=== PATIENT | male | born 1955 | race Caucasian/White ===

== ENCOUNTER 2020-07-08 12:12 | Outpatient (RCR) | payer BC, SELFPAY | END 2020-08-05 23:59 | disposition home or self-care (01) | LOC: SOT 12:12 | PROVIDERS: PCP Electrodiagnostic Medicine; Referring Provider Orthopaedic Surgery; Visit Provider Orthopaedic Surgery | DX: Z47.89 Encounter for other orthopedic aftercare (principal); M79.645 Pain in left finger(s) | CPT/HCPCS: 97035; 97110 ==

== ENCOUNTER 2020-08-06 06:00 | Outpatient (RCR) | payer BC, SELFPAY | END 2020-09-02 23:00 | disposition home or self-care (01) | LOC: SOT 06:00 | PROVIDERS: PCP Electrodiagnostic Medicine; Referring Provider Orthopaedic Surgery; Visit Provider Orthopaedic Surgery | DX: M79.645 Pain in left finger(s) (principal) | CPT/HCPCS: 97110 ==

== ENCOUNTER 2021-09-01 11:28 | Outpatient (RCR) | payer MEDICARE, OTHER, SELFPAY | END 2021-09-05 23:59 | disposition home or self-care (01) | LOC: SOT 11:28 | PROVIDERS: PCP Electrodiagnostic Medicine; Referring Provider Orthopaedic Surgery; Visit Provider Orthopaedic Surgery | DX: Z47.89 Encounter for other orthopedic aftercare (principal) | CPT/HCPCS: 97165 ==

== ENCOUNTER 2021-09-06 06:00 | Outpatient (RCR) | payer MEDICARE, OTHER, SELFPAY | END 2021-10-03 23:59 | disposition home or self-care (01) | LOC: SOT 06:00 | PROVIDERS: PCP Electrodiagnostic Medicine; Referring Provider Orthopaedic Surgery; Visit Provider Orthopaedic Surgery | DX: Z47.89 Encounter for other orthopedic aftercare (principal) | CPT/HCPCS: 97022; 97032; 97035; 97110; 97140; 97168 ==

== ENCOUNTER 2021-10-04 06:00 | Outpatient (RCR) | payer MEDICARE, OTHER, SELFPAY | END 2021-11-03 23:59 | disposition home or self-care (01) | LOC: SOT 06:00 | PROVIDERS: PCP Electrodiagnostic Medicine; Referring Provider Orthopaedic Surgery; Visit Provider Orthopaedic Surgery | DX: Z47.89 Encounter for other orthopedic aftercare (principal) | CPT/HCPCS: 97022; 97032; 97110; 97140; 97165 ==

== ENCOUNTER 2024-03-27 11:39 | Outpatient (CLI) | payer MEDICARE, OTHER, SELFPAY ==
[2024-03-27 11:48] VITALS: BMI 29.9
--- NOTE | 2024-03-27 11:49 | ECG_ITS ---
[facility] Test Date: 2024-03-27 Pat Name: Pedro Costello Department: Room: Gender: Male Core Shaper: : 1955 Requested By: Abbe West Order Number: [id number] Charles MD: Jackson Samano M.D. Interpretive Statements NAME OF STUDY: TREADMILL STRESS TEST INDICATION: [Chest Pain, ] EXERCISE DATA: The patient was exercised by Adrian protocol. Baseline heart rate was 68 beats per minute. Baseline blood pressure was 111/69 millimeters of mercury. Maximal predicted heart rate was 151 beats per minute. Maximum heart rate achieved was 137 which was 90 % of the maximum predicted heart rate. Maximum blood pressure was 152/73 millimeters of mercury. Total exercise time was 7 minutes and 11 seconds. Maximum METs achieved was 10.2. The reason for ending the test was completion of protocol. The patient complained of shortness of breath during the stress test, which then resolved at the end of the test. ELECTROCARDIOGRAM: BASELINE: Showed sinus rhythm, normal axis, right bundle branch block, no significant ST-T changes at the baseline noted. [] EXERCISE: At the peak exercise level, [] No significant ST-T changes suggestive of ischemia noted. [] RECOVERY: During the recovery period, heart rate dropped appropriately. No significant ST-T changes in the recovery suggestive of ischemia noted. [] CONCLUSION: 1. Exercise capacity is good. 2. Heart rate response was appopriate 3. Blood pressure response was appropriate 4. Symptoms not suggestive of ischemia. 5. Stress test does not show evidence of ischemia. However underlying baseline right bundle branch block reduces sensitivity of the test. Clinical correlation is required. Electronically Signed On 03-29-2024 9:49:19 CDT by Jackson Samano M.D. [id number]
[2024-03-27 12:19] VITALS: BP 148/75; PULSE 78
== END 2024-03-27 11:40 | disposition home or self-care (01) ==
LOC: CDL 11:40
PROVIDERS: PCP Electrodiagnostic Medicine; Visit Provider Electrodiagnostic Medicine
DX: R07.9 Chest pain, unspecified (principal); R94.39 Abnormal result of other cardiovascular function study
CPT/HCPCS: 93017

== ENCOUNTER 2024-12-03 11:25 | Emergency (ER) | payer MEDICARE, OTHER, SELFPAY ==
[2024-12-03 11:26] VITALS: BP 164/118; PULSE 96; TEMP 36.4; O2SAT 98; BMI 28.7
--- NOTE | 2024-12-03 11:39 | CT_ITS ---
WS: [id number] CT ABDOMEN AND PELVIS NONCONTRAST HISTORY: flank pain/diff urinating TECHNIQUE: Imaging performed through the abdomen and pelvis. Coronal and sagittal reformats are submitted. All CT scans at [facility] use at least one of these dose optimization techniques: automated exposure control; mA and/or kV adjustment per patient size (includes targeted exams where dose is matched to clinical indication); or iterative reconstruction. DLP: 765.77 mGy.cm COMPARISON: 09/28/2018 Lower thorax: Lung bases are clear. Visualized heart is normal. No hiatal hernia. Liver: Normal size liver. No mass or bile duct dilatation. Gallbladder: Normal gallbladder. No pericholecystic fluid or cholelithiasis. No gallbladder wall thickening. Pancreas: Normal size and attenuation. Normal pancreatic duct. No pancreatitis or mass. Spleen: Normal. Adrenal glands: Normal. No mass. Right kidney: Normal size kidney. Nonobstructing calcification lower pole measures 6 mm. No ureteral calcification. Left kidney: Normal size kidney with no mass or hydronephrosis. Aorta: Minimal atherosclerosis aorta. No free fluid, intraperitoneal air or significant lymphadenopathy. GI tract: Normal noncontrast imaging of the stomach, small bowel and colon. No obstruction or wall thickening. Normal appendix. Abdominal wall: Negative. No hernia. Pelvis: Urinary bladder is well distended. There is a tiny nodule adjacent to the RIGHT lateral bladder if small diverticulum or lymph node. There is no free fluid in the pelvis. Prostate is enlarged. Fat-containing bilateral inguinal canals, greater on the RIGHT. There is new fat stranding and soft tissue along the RIGHT inguinal canal extending towards the scrotum. There is a mixed attenuation soft tissue mass along the inguinal canal measuring 4.6 x 4.4 cm. This needs to be evaluated by ultrasound. This may be an abnormal testicle with adjacent fluid or hematoma. There is fat stranding along the RIGHT inguinal canal which may represent a torsion of the spermatic cord. Osseous structures: Increase in the lumbar lordosis. CT/CT kidney stone [id number] IMPRESSION: 1. Abnormal RIGHT inguinal canal containing fat and fat stranding with a heter ogeneous mass towards the scrotal sac. Mass measures 4.6 x 4.4 cm. This may be an abnormal testicle with changes of acute torsion. Hematoma not excluded. Ladarius mmend testicular ultrasound to evaluate for torsion. 2. No renal obstruction or ureteral calcification. 3. No GI tract obstruction. Notified Ela Ulrich MD at 12/03/2024 12:06 PM.
--- NOTE | 2024-12-03 11:39 | W.ED.MALEGU ---
HPI - Male Genitourinary General: Chief complaint: Urogenital-Male Stated complaint: dr welch trouble urinating Time Seen by Provider: 12/03/24 11:36 Source: patient Mode of arrival: ambulatory Limitations: no limitations History of Present Illness: 69-year-old male states that over the last 2 hours he been having hard time urinating states been having some pain especially urinates into both flanks as well. He has had had history of kidney stones at least he may have history of prostate problems as he is to go to the bathroom frequently states he not been able to urinate at all over 2 hours denies any vomiting or diarrhea or fevers rates his pain a 4 out of 10 Associated symptoms: Reports dysuria; Deny nausea or vomiting Related Data Home Medications ?Medication ?Instructions ?Recorded ?Confirmed omeprazole 40 mg capsule,delayed 40 mg PO DAILY 12/03/24 12/03/24 release Previous Rx's ?Medication ?Instructions ?Recorded levofloxacin 500 mg tablet 500 mg PO DAILY 10 days #10 tabs 12/03/24 Allergies Allergy/AdvReac Type Severity Reaction Status Date / Time No Known Allergies Allergy Verified 12/03/24 11:34 Review of Systems Const: Denies: fever(s), chills, body aches or change in appetite ENMT: Denies: throat pain or dental pain Card: Denies: chest pain Resp: Denies: dyspnea GI: Denies: abdominal pain, nausea, vomiting or diarrhea : Reports: flank pain, difficulty urinating and dysuria Musc: Denies: neck pain or back pain Skin/Breast: Denies: rash Neuro: Denies: headache(s) Physical Exam Const: COMMON NORMALS: no acute distress, patient oriented x3 and healthy appearing HENMT: COMMON NORMALS: normocephalic and atraumatic HEAD & SCALP: normocephalic and atraumatic Eye: COMMON NORMALS: conjunctivae normal CONJUNCTIVA: Yes conjunctivae normal Neck/C-Spine: COMMON NORMALS: full ROM and supple Chest: COMMONS NORMALS: normal inspection of the chest Resp: COMMON NORMALS: normal respiratory effort Cardio: COMMON NORMALS: regular rate, regular rhythm and No murmurs present (Cardio) RATE: regular rate RHYTHM: regular rhythm GI: COMMON NORMALS: Normal to inspection, nondistended, normoactive bowel sounds present, Soft to palpation, non-tender and no masses PALPATION: Yes Soft to palpation Extremity: COMMON NORMALS: normal to inspection and full ROM Neuro: COMMON NORMALS: patient oriented x3, moves all extremities and no focal motor deficits Psych: COMMON NORMALS: mental status grossly normal, Normal thought process present and cooperative THOUGHT PROCESS: Normal thought process present Skin: COMMON NORMALS: no rashes or lesions noted and no wounds GENERAL SKIN EXAM: no rashes or lesions noted Course Vital Signs: Vital signs: Vital Signs Temperature 97.5 F L 12/03/24 11:26 Pulse Rate 85 12/03/24 12:55 Respiratory Rate 16 12/03/24 12:55 Blood Pressure 122/83 12/03/24 12:55 Pulse Oximetry 96 12/03/24 12:55 Oxygen Delivery Me thod Room Air 12/03/24 12:55 MDM - Male Medical Decision Making Patient presents with urinary retention feels much improved after Oglesby placed he is also has epididymitis on ultrasound no signs of torsion or mass will leave Oglesby in place will place him on Levaquin we will get him follow-up with urology he is return if worsening. Medical Records I reviewed the patient's medical records. Lab Data I reviewed the patient's lab results. 12/03/24 11:40 12/03/24 11:40 Radiology Impressions Abdomen/Pelvis CT 12/03/24 11:39 IMPRESSION: 1. Abnormal RIGHT inguinal canal containing fat and fat stranding with a heterogeneous mass towards the scrotal sac. Mass measures 4.6 x 4.4 cm. This may be an abnormal testicle with changes of acute torsion. Hematoma not excluded. Recommend testicular ultrasound to evaluate for torsion. 2. No renal obstruction or ureteral calcification. 3. No GI tract obstruction. Notified Ela Ulrich MD at 12/03/2024 12:06 PM. Scrotum Ultrasound 12/03/24 12:09 IMPRESSION: 1. No testicular mass or torsion. 2. Hydrocele surrounding the RIGHT testicle corresponds to the findings on the recent CT. 3. Acute RIGHT epididymitis. 4. Normal LEFT testicle. Laboratory Results WBC 6.87 10^3/uL (3.29-11.43) 12/03/24 11:40 RBC 5.65 10^6/uL (3.85-5.65) 12/03/24 11:40 Hgb 16.90 g/dL (11.27-16.99) 12/03/24 11:40 Hct 50.1 % (37-53) 12/03/24 11:40 MCV 88.7 fl (82-101) 12/03/24 11:40 MCH 29.9 pg (27-33) 12/03/24 11:40 MCHC 33.7 g/dL (30-55) 12/03/24 11:40 RDW 12.6 % (12.1-15.1) 12/03/24 11:40 Plt Count 200 10^3/cmm (157-399) 12/03/24 11:40 MPV 10.1 fL (7.4-10.4) 12/03/24 11:40 Neut % (Auto) 63.9 % 12/03/24 11:40 Lymph % (Auto) 26.1 % 12/03/24 11:40 [place] % (Auto) 6.0 % 12/03/24 11:40 Eos % (Auto) 3.2 % 12/03/24 11:40 Baso % (Auto) 0.7 % 12/03/24 11:40 Neut # (Auto) 4.39 10^3/uL (1.8-7.7) 12/03/24 11:40 Lymph # (Auto) 1.8 10^3/uL (0.8-4.8) 12/03/24 11:40 [place] # (Auto) 0.4 10^3/uL (0.2-0.9) 12/03/24 11:40 Eos # (Auto) 0.2 10^3/uL (0.0-0.8) 12/03/24 11:40 Baso # (Auto) 0.1 10^3/uL (0.0-0.1) 12/03/24 11:40 Nucleated RBC % (auto) 0 % 12/03/24 11:40 Nucleated RBCs # 0.0 /100WBC 12/03/24 11:40 Sodium 141 mmol/L (136-145) 12/03/24 11:40 Potassium 3.9 mmol/L (3.5-5.1) 12/03/24 11:40 Chloride 103 mmol/L (98-107) 12/03/24 11:40 Carbon Dioxide 26 mmol/L (22-29) 12/03/24 11:40 Anion Gap 15.9 (5-19) 12/03/24 11:40 BUN 13 mg/dL (8-23) 12/03/24 11:40 Creatinine 0.7 mg/dL (0.7-1.2) 12/03/24 11:40 GFR Calculation 111.5 mL/min (90-130) 12/03/24 11:40 Glucose 104 mg/dL (65-115) 12/03/24 11:40 Calculated Osmolality 292 mOsm/kg (285-295) 12/03/24 11:40 Calcium 9.6 mg/dL (8.5-10.5) 12/03/24 11:40 Total Bilirubin 0.6 mg/dL (0.15-1.2) 12/03/24 11:40 AST 21 U/L (0-40) 12/03/24 11:40 ALT 20 U/L (0-41) 12/03/24 11:40 Alkaline Phosphatase 88 U/L (40-130) 12/03/24 11:40 Total Protein 7.9 g/dL (6.6-8.7) 12/03/24 11:40 Albumin 4.5 g/dL (3.5-5.2) 12/03/24 11:40 Globulin 3.4 g/dL (1.3-4.6) 12/03/24 11:40 Urine Color Yellow (Yellow) 12/03/24 11:52 Urine Appearance Clear (CLEAR) 12/03/24 11:52 Urine pH TNP 12/03/24 11:52 Ur Specific Hurley TNP 12/03/24 11:52 Urine Protein TNP 12/03/24 11:52 Urine Glucose (UA) TNP 12/03/24 11:52 Urine Ketones TNP 12/03/24 11:52 Urine Blood TNP 12/03/24 11:52 Urine Nitrate TNP 12/03/24 11:52 Urine Bilirubin TNP 12/03/24 11:52 Urine Urobilinogen TNP 12/03/24 11:52 Ur Leukocyte Esterase TNP 12/03/24 11:52 Urine RBC None /hpf (0-2) 12/03/24 11:52 Urine WBC None /hpf (0-5) 12/03/24 11:52 Ur Squamous Epith Cells None /hpf (0-5) 12/03/24 11:52 Amorphous Sediment Not Reportable 12/03/24 11:52 Urine Bacteria None /hpf (NONE) 12/03/24 11:52 Urine Mucus None /hpf 12/03/24 11:52 All radiology interpretation(s) finalized by discharge Discharge Plan Discharge Patient Disposition: Home Clinical Impression: Acute retention of urine, Epididymitis Condition: Stable Prescriptions: New levofloxacin 500 mg tablet 500 mg PO DAILY 10 Days Qty: 10 0RF No Action omeprazole 40 mg capsule,delayed release(DR/EC) 40 mg PO DAILY Discharge Orders: Discharge ED (Routine); Ordered 12/03/24 Ordered By: Ela Ulrich Referrals: Abbe Sewell DO [Primary Care Provider, [facility]] Discharge Diet: Advance as tolerated Discharge Activity: Resume usual activity Patient Instructions: Epididymitis (ED), Urinary Retention in Men (ED), Oglesby Catheter Placement and Care (ED) Print Language: Sammarinese Coding Level of Care Code ED Skiver [employer]ock [employer]ings for Yulissa Quarles
[2024-12-03 11:49] LABS: Basophils # 0.1 10^3/uL (0.0-0.1); Basophils % 0.7 %; Eosinophils # 0.2 10^3/uL (0.0-0.8); Eosinophils % 3.2 %; Hematocrit 50.1 % (37-53); Lymphocytes # 1.8 10^3/uL (0.8-4.8); Lymphocytes % 26.1 %; Mean Corpuscular HGB Conc 33.7 g/dL (30-55); Mean Corpuscular Hemoglobin 29.9 pg (27-33); Mean Corpuscular Volume 88.7 fl (82-101); Mean Platelet Volume 10.1 fL (7.4-10.4); Monocytes # 0.4 10^3/uL (0.2-0.9); Neutrophils # 4.39 10^3/uL (1.8-7.7); Neutrophils % 63.9 %; Nucleated Red Blood Cells % 0 %; Platelet Count 200 10^3/cmm (157-399); Red Blood Count 5.65 10^6/uL (3.85-5.65); Red Cell Distribution Width 12.6 % (12.1-15.1); White Blood Count 6.87 10^3/uL (3.29-11.43)
[2024-12-03] MEDS: ketorolac 30 mg/mL INJ 15 MG IVP (11:53)
[2024-12-03 11:55] VITALS: BP 181/107; PULSE 95; RESP 18; O2SAT 96
--- NOTE | 2024-12-03 12:09 | US_ITS ---
WS: [id number] TESTICULAR ULTRASOUND HISTORY: testicle mass COMPARISON: None available. TECHNIQUE: Real-time and color Doppler imaging utilized to perform a testicular ultrasound. Right testicle: 2.7 cm x 4.4 cm x 2.5 cm. Normal size and echogenicity. No mass or torsion. Normal color Doppler is present throughout. Systolic and diastolic velocities are both present. There is a small hydrocele surrounding the testicle which corresponds to the findings on the recent CT. Right epididymis: Increased vascularity in the RIGHT epididymis and heterogeneity. Left testicle: 1.8 cm x 3.1 cm x 1.7 cm. Normal size and echogenicity. No mass or torsion. Normal color Doppler is present throughout. Systolic and diastolic velocities are both present. No significant hydrocele. Left epididymis: Normal epididymis with no increased vascularity. US/US scrotum [id number] IMPRESSION: 1. No testicular mass or torsion. 2. Hydrocele surrounding the RIGHT testicle corresponds to the findings on the recent CT. 3. Acute RIGHT epididymitis. 4. Normal LEFT testicle.
[2024-12-03 12:11] LABS: Alanine Aminotransferase 20 U/L (0-41); Albumin Level 4.5 g/dL (3.5-5.2); Alkaline Phosphatase 88 U/L (40-130); Anion Gap 15.9 (5-19); Aspartate Amino Transferase 21 U/L (0-40); Blood Urea Nitrogen 13 mg/dL (8-23); Calcium 9.6 mg/dL (8.5-10.5); Carbon Dioxide 26 mmol/L (22-29); Chloride 103 mmol/L (98-107); Globulin 3.4 g/dL (1.3-4.6); Glomerular Filtration Rate 111.5 mL/min (90-130); Glucose 104 mg/dL (65-115); Osmolality Calculated 292 mOsm/kg (285-295); Potassium 3.9 mmol/L (3.5-5.1); Sodium 141 mmol/L (136-145); Total Bilirubin 0.6 mg/dL (0.15-1.2); Total Protein 7.9 g/dL (6.6-8.7)
[2024-12-03 12:47] LABS: Urine Appearance Clear (CLEAR); Urine Color Yellow (Yellow)
[2024-12-03 12:48] LABS: Add Urine Microscopic? YES; UA Manual Slide Review YES; UA Slide Review UA Slide Review Perf
[2024-12-03 12:52] LABS: Add Urine Culture? No
[2024-12-03 12:55] VITALS: BP 122/83; PULSE 85; RESP 16; O2SAT 96
[2024-12-03 13:50] VITALS: BP 127/83; PULSE 68; RESP 17; O2SAT 93
--- NOTE | 2024-12-05 07:47 | DCPLANNER ---
faxed referral packet to [facility]
== END 2024-12-03 13:51 | disposition home or self-care (01) ==
PROVIDERS: Emergency Provider Emergency Medicine; PCP Electrodiagnostic Medicine
DX: R33.9 Retention of urine, unspecified (principal); N45.1 Epididymitis
CPT/HCPCS: 36415; 51702; 74176; 76870; 80053; 81001; 85025; 96374; 99285; J1885

== ENCOUNTER 2025-01-07 08:38 | Outpatient (CLI) | payer MEDICARE, OTHER, SELFPAY ==
--- NOTE | 2025-01-07 08:42 | MR_ITS ---
WS: [id number] MRI LEFT HIP WITHOUT CONTRAST. COMPARISON: Radiograph 12/23/2024 Multiplanar, multisequence imaging is performed without contrast. No acute fracture or marrow edema. Mild narrowing of the hip joint. Mild loss of cartilage is symmetric involving both hips. Small bilateral joint effusions are within normal limits. No labral tear. There is a tiny subchondral cyst in the anterior LEFT femoral head. Abnormal signal in the LEFT gluteus medius tendon at where it attaches to the trochanter. There is fluid like signal within the tendon. The fluid signal extends more proximally along the tendon sheath. No muscle atrophy. This is asymmetric to the RIGHT hip. Also noted is mild bilateral trochanteric bursitis. Additional minor tear is noted within the RIGHT gluteus medius tendon. Urinary bladder is well distended. Prostate gland is enlarged and heterogeneous. There is no free fluid in the pelvis. Small bilateral hydroceles. MR/MR hip LT wo con* [id number] IMPRESSION: 1. Moderate to high-grade LEFT gluteus medius tendon tear. 2. Minimal RIGHT gluteus medius tendon tear. 3. Minimal bilateral trochanteric bursitis. 4. 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
== END 2025-01-07 08:39 | disposition home or self-care (01) ==
PROVIDERS: PCP Electrodiagnostic Medicine; Visit Provider Electrodiagnostic Medicine
DX: M76.892 Other specified enthesopathies of left lower limb, excluding foot (principal); S76.012A Strain of muscle, fascia and tendon of left hip, initial encounter; M16.0 Bilateral primary osteoarthritis of hip; R93.7 Abnormal findings on diagnostic imaging of other parts of musculoskeletal system; M70.62 Trochanteric bursitis, left hip; N40.0 Benign prostatic hyperplasia without lower urinary tract symptoms; N43.3 Hydrocele, unspecified; X58.XXXA Exposure to other specified factors, initial encounter
CPT/HCPCS: 73721

== ENCOUNTER → 2025-02-10 08:04 | Outpatient (BNVA) | payer MEDICARE, OTHER, SELFPAY | PROVIDERS: PCP Electrodiagnostic Medicine; Visit Provider Student in an Organized Health Care Education/Training Program | DX: M25.552 Pain in left hip (principal); M70.62 Trochanteric bursitis, left hip; S76.012A Strain of muscle, fascia and tendon of left hip, initial encounter; X58.XXXA Exposure to other specified factors, initial encounter | CPT/HCPCS: 73502; 99204 ==

== ENCOUNTER 2025-03-04 10:27 | Outpatient (RCR) | payer MEDICARE, OTHER, SELFPAY | END 2025-03-05 23:59 | disposition home or self-care (01) | LOC: SPT 10:27 | PROVIDERS: PCP Electrodiagnostic Medicine; Visit Provider Student in an Organized Health Care Education/Training Program | DX: S76.019D Strain of muscle, fascia and tendon of unspecified hip, subsequent encounter (principal); X58.XXXD Exposure to other specified factors, subsequent encounter | CPT/HCPCS: 97110; 97162 ==

== ENCOUNTER 2025-03-06 05:00 | Outpatient (RCR) | payer MEDICARE, OTHER, SELFPAY | END 2025-04-05 23:59 | disposition home or self-care (01) | LOC: SPT 05:00 | PROVIDERS: PCP Electrodiagnostic Medicine; Visit Provider Student in an Organized Health Care Education/Training Program | DX: S76.019D Strain of muscle, fascia and tendon of unspecified hip, subsequent encounter (principal); X58.XXXD Exposure to other specified factors, subsequent encounter | CPT/HCPCS: 97110 ==

== ENCOUNTER 2025-04-06 05:00 | Outpatient (RCR) | payer MEDICARE, OTHER, SELFPAY | END 2025-04-21 14:07 | disposition home or self-care (01) | LOC: SPT 05:00 | PROVIDERS: PCP Electrodiagnostic Medicine; Visit Provider Student in an Organized Health Care Education/Training Program | DX: S76.019A Strain of muscle, fascia and tendon of unspecified hip, initial encounter (principal); X58.XXXA Exposure to other specified factors, initial encounter | CPT/HCPCS: 97530 ==

== ENCOUNTER → 2025-04-21 09:00 | Outpatient (BNVA) | payer MEDICARE, OTHER, SELFPAY | PROVIDERS: PCP Electrodiagnostic Medicine; Visit Provider Student in an Organized Health Care Education/Training Program | DX: M70.62 Trochanteric bursitis, left hip (principal); S76.012A Strain of muscle, fascia and tendon of left hip, initial encounter; X58.XXXA Exposure to other specified factors, initial encounter | CPT/HCPCS: 99214 ==

== ENCOUNTER → 2025-05-05 11:38 | Outpatient (BNVA) | payer MEDICARE, OTHER, SELFPAY | PROVIDERS: PCP Electrodiagnostic Medicine; Visit Provider Family Medicine | DX: Z01.818 Encounter for other preprocedural examination (principal) | CPT/HCPCS: 80053; 81000; 85025 ==

== ENCOUNTER → 2025-06-03 14:52 | Outpatient (BNVA) | payer MEDICARE, OTHER, SELFPAY | PROVIDERS: PCP Electrodiagnostic Medicine; Visit Provider Student in an Organized Health Care Education/Training Program | DX: S76.012D Strain of muscle, fascia and tendon of left hip, subsequent encounter (principal); X58.XXXD Exposure to other specified factors, subsequent encounter; M70.62 Trochanteric bursitis, left hip | CPT/HCPCS: 99213 ==

== ENCOUNTER 2025-06-18 12:09 | Observation (INO) | payer MEDICARE, OTHER, SELFPAY ==
[2025-06-18] VITALS (18 sets, daily range): BP systolic 101–140; BP diastolic 61–89; PULSE 60–82; RESP 12–22; TEMP 36.3–36.8; O2SAT 91–100; BMI 30.7
[2025-06-18] MEDS: acetaminophen 1,000 MG/100 ML PIGGYBACK 400 MG IV ×3 (08:19→20:09)
--- NOTE | 2025-06-18 08:29 | SUR.PREOP ---
TORADOL 15mg GIVEN PER ANESTHESIA.
--- NOTE | 2025-06-18 08:29 | ANES.PREANE2 ---
Pre-Anesthetic Assessment Height/Weight: Height 1.68 m Weight 86.183 kg Temp Pulse Resp BP Pulse Ox O2 Del Method 97.4 F L 67 16 131/85 96 Room Air 06/18/25 07:45 06/18/25 07:45 06/18/25 07:45 06/18/25 07:45 06/18/25 07:45 06/18/25 07:59 Operation Date: 06/18/25 09:00 Proposed Procedures p LEFT Hip OPEN Trochanteric Bursectomy(Left) - Ronan Rodríguez DO s LEFT OPEN Gluteus Medius Tendon Repair(Left) - Ronan Rodríguez DO Familial anesthetic complications: Severe MARINO - I quit breathing Was Beta Tabatha taken within 24 hours: N/A Was Clonidine taken within 24 hours: N/A Last intake: Intake Last Liquid Date 06/17/25 Last Liquid Time 21:30 Last Solid Date 06/17/25 Last Solid Time 22:00 Social No alcohol and No tobacco Exam alert, oriented x 3, clear to auscultation bilaterally and regular rate & rhythm Airway Mallampati: Class III Dentition: other (missing) Pulmonary Sleep Apnea Anesthetic Plan ASA status: 3 Anesthesia: General Risk of > 500 ml blood loss (7ml/kg in children): No Medications/Allergies Home Medications ?Medication ?Instructions ?Recorded ?Confirmed ?Last Taken ?Type omeprazole 40 mg capsule,delayed 40 mg PO DAILY 12/03/24 06/17/25 06/18/25 History release cholecalciferol (vitamin D3) 10 10 mcg PO DAILY 02/10/25 06/17/25 05/18/25 History mcg (400 unit) capsule multivitamin 1 tab PO DAILY 02/10/25 06/17/25 05/18/25 History saw palmetto 450 mg capsule 450 mg PO BID 02/10/25 06/17/25 05/18/25 History tamsulosin 0.4 mg capsule 0.4 mg PO DAILY 02/10/25 06/17/25 06/18/25 History zinc sulfate 50 mg zinc (220 mg) 50 mg PO BID 02/10/25 06/17/25 05/18/25 History tablet Hospital Bed #1 ea 06/15/25 Unknown Rx Allergies Allergy/AdvReac Type Severity Reaction Status Date / Time No Known Allergies Allergy Verified 06/17/25 10:34 [facility] Anesthesia Social History Smoking and tobacco/nicotine status: former use of tobacco/nicotine Alcohol intake: never Substance/Drug Use: former
--- NOTE | 2025-06-18 08:43 | W.PM.OPSUD ---
Surgery/Procedure H&P Update DATE OF PROCEDURE: June 18, 2025 DATE H&P PERFORMED: 06/03/25 H&P UPDATE INFORMATION: I have reviewed H&P completed within last 30 days, I have examined patient prior to procedure and No changes to prior documentation CHANGES TO PREVIOUS DOCUMENTATION: As stated in his office visit but added into the consent today was a left hip open trochanteric bursectomy, open gluteus medius tendon repair, possible graft augmentation. Planning on adding this in case of a large tear as well as thin caliber tendon would add graft augmentation to help with repair. Patient understands and agrees with current plan. All questions answered PREOP DIAGNOSIS: Left hip trochanteric bursitis, left gluteus medius tendon tear PRIMARY INDICATION FOR PROCEDURE: Left hip trochanteric bursitis, left gluteus medius tendon tear PLANNED PROCEDURE: Operation Date: 06/18/25 09:00 Proposed Procedures p LEFT Hip OPEN Trochanteric Bursectomy(Left) - Ronan Rodríguez DO s LEFT OPEN Gluteus Medius Tendon Repair(Left) - Ronan Rodríguez DO
[2025-06-18] MEDS: ceFAZolin 2,000 MG in sodium chloride 0.9% (plus) 50 ML 100 MG IV ×2 (09:10→16:52)
[2025-06-18] MEDS: ROPivacaine 0.5% SDV 30 mL 150 MG INJECTION (10:01)
[2025-06-18] MEDS: lidocaine 2% INJ 20 mL INJECTION (10:01)
--- NOTE | 2025-06-18 11:03 | P.BOP_ITS ---
Date of Procedure: 06/18/2025 Surgeon: Ronan Rodríguez DO Senior Business Architect(s): Patrick Rodríguez PA-C Procedure(s) performed: Left hip open trochanteric bursectomy Left hip open gluteus medius tendon repair with graft augmentation Findings of the procedure(s): Underwent procedure as planned without issues or complications taken recovery in stable condition Estimated blood loss: 20 mL Specimen(s) removed: Trochanteric bursa removed, not sent for specimen Post-operative diagnosis: Left hip trochanteric bursitis, left hip gluteus medius tendon tear
--- NOTE | 2025-06-18 11:05 | P.OP_ITS ---
Operative Report Date of procedure: June 18, 2025 Pre-op diagnosis: Left hip trochanteric bursitis, left hip gluteus medius tendon tear Post-op diagnosis: Same Post-op findings: See operative report narrative Procedure done: Left hip open trochanteric bursectomy Left hip open gluteus medius tendon repair with graft augmentation Implants: Arthrex 4.75 swivel lock double loaded Arthrex 4.75 swivel lock Arthrex Aflex decelerated dermis graft Surgeon: Ronan Rodríguez DO Leadership Recruiter: Patrick Rodríguez PA-C: NAYAN was necessary for assistance in this case with leg positioning retraction and protection of neurovascular structures as well as assistance in implantation/glutes tendon repair ,, assistance and wound closure and dressing application. Anesthesia: General Estimated blood loss: 20mL IV fluids: 800 mL Complications: None Findings: See operative report narrative Condition: stable Disposition: observation Brief History: Patient is a pleasant 69-year-old male who has been worked up in the outpatient setting failed respond to conservative treatment for trochanteric bursitis MRI confirms glute medius tendon tear as well he has failed to respond to conservative treatment at this point in time through shared decision making he elects proceed with surgical intervention for left hip open trochanteric bursectomy, left hip open gluteus medius tendon repair with possible graft augmentation. He understands these and outs of the procedure the risk benefits complication alternatives surgical nonsurgical treatment options. Understanding risk of surgery patient like to proceed with surgical invention all questions answered at this time. Consent reviewed and signed in the preoperative holding area. Procedure: Patient seen by the preoperative holding area. Consent was reviewed and signed with patient correct extremities and subsequently marked. Patient was then seen by by anesthesia once cleared for surgery was taken back to the operative suite patient was then safely transported on the OR table all bony promises well- padded patient appropriate secured to bed. Patient underwent anesthesia per the anesthesia permit was prepped anesthetized patient was then placed in a lateral decubitus position and with securing and a beanbag lateral. At this point in time all bony prominences well-padded patient appropriate secured to the bed. This point in time the left hip was then prepped and draped in standard o rthopedic fashion. Final timeout performed. Patient received appropriate preoperative biotics. A standard lateral approach over the greater trochanter which could be incorporated with a posterior approach total hip replacement down the road was then subsequently made this was made through skin and subcutaneous tissue maintain exact hemostasis with bipolar electrocautery I then switched to a Gomez elevator and mobilized over the gluteus sushila fascia. This was then split longitudinally and came down directly over the greater trochanter. Charnley's were then applied once again maintain exact hemostasis and care was to protect all neurovascular structures. At this point in time I came over the greater trochanter and then subsequent utilized a rongeur and electrocautery and performed a open bursectomy and removed all bursal tissue around the greater trochanter. At this point time was evident patient had the gluteus medius tendon tear. This tear appeared to be medium in size this is on the roughly middle two thirds of the gluteus medius at its insertion site on the greater trochanter. At this point in time we will visualize this tear and subsequently mobilized this with electrocautery for appropriate releases care to allow for better tendon excursion for repair. At this point in time we then decorticated the footprint of the repair. At this point in time tear was U-shaped. I then subsequently once we had good bleeding bone at the footprint and prepped the site for repair I then subsequently placed a single 4.75 swivel lock I subsequently utilized a predrilled for the 4.75 swivel lock this was then a double loaded swivel lock with double loaded FiberWire as well as we placed a suture tape in this as well. At this point in time this was then partly secured had excellent fixation I then subsequently utilized a free needle and passed both double loaded suture strands of FiberWire into the part of the tendon. This was then subsequently tied down for both of these to have good tendon to bone interface. Then I subsequently passed up the suture tapes slightly more lateral through the tendon for finalizing repair of this. At this point in time given the size of this as well as patient's tendon quality was slightly thinner just given his age I feel would benefit from graft augmentation subsequently open and Arthrex a flex dermal graft. This then was then cut to size and then laid over top of the repair site. I then subsequently utilized a free needle to pass both the tiedown FiberWire and the suture tapes up through the graft and then subsequently loaded these into a single lateral row anchor this was brought over the vastus ridge again subsequently drilled and then keeping under appropriate tension while my paralegal assistant held the graft in place I then subsequently brought these over into the lateral anchor these were then appropriately tensioned and then subsequently secured the 4.[address] to complete the repair. At this point time this had excellent tension I took the hip through range of motion and all moved as a unit I then subsequently utilized 0 Vicryl suture to secure and tie down the graft circumferentially just to prevent this graft from curling up and to lay this flat over the repair site for better incorporation. At this point time this completed my repair and was satisfied with fixation. Thorough irrigation performed with Pulsavac and then subsequently the incision was then sprinkled with vancomycin powder for antibiotic infection prophylaxis. I then subsequently reapproximated the splint in the IT band and gluteal fascia which was reapproximated with #1 STRATAFIX suture and then subsequently was closed with 2 oh STRATAFIX running 3 oh STRATAFIX for skin. And this was then dressed with nalini incisional VAC dressing. Patient was then placed in a abduction pillow at this time and then subsequently a hip abduction brace was placed by physical therapy who came into the OR once patient was close and had appropriate dressings on the hip in order to apply the brace while patient was still asleep with anesthesia. Brace is applied in good position he was then awakened from anesthesia and taken recovery in stable condition Disposition: Patient taken recovery in stable condition will be admitted postoperatively under observation to the floor this will allow for patient given his age to work with therapy as well as get appropriate discharge planning for home. Plan will be for discharge tomorrow. Sy patient will receive appropriate perioperative antibiotics. As well as patient appropriately sized with brace and will be toe- touch weightbearing with peak and come out of this while he is laying down and can utilize a abduction pillow between his legs while he is in bed. Understands importance of strict adherence to this. Patient understands and agrees with current plan. All questions answered.
--- NOTE | 2025-06-18 11:29 | PM.PACU ---
PACU note Narrative: Patient is a 69-year-old male that just underwent a left hip open trochanteric bursectomy and Left hip open gluteus medius tendon repair with graft augmentation. Pt transferred to PACU in stable condition. Dressing is dry. pt is awake and alert. pt can wiggle toes and plantarflex and dorsiflex foot. Distal pulses are palpable toes are warm and well-perfused. Cap refill is normal and under 2 seconds. Sensation to foot is intact. Pain is controlled. Exam: awake Disposition: discharged
[2025-06-18] MEDS: fentaNYL 50 mcg/mL INJ 2mL IVP (11:33)
--- NOTE | 2025-06-18 12:59 | ANE.PACU2 ---
Inpatient post-anesthesia follow up: Airway intact: Yes Vital signs: Temperature 97.5 F Pulse Rate 63 Respiratory Rate 12 Blood Pressure 125/89 Pulse Oximetry 93 Oxygen Delivery Me thod Room Air Oxygen Flow Rate 8 Fraction of Inspir ed Oxygen Hydration adequate: Yes Nausea and vomiting: No Pain level: 1 Mental status: Baseline
[2025-06-18] MEDS: oxyCODONE 5 mg IR Tab/Cap PO (13:11)
[2025-06-18] MEDS: mupirocin oint 22 gm 1 APPLIC NASAL (16:53)
[2025-06-18] MEDS: calcium carb-vit d 600mg/400unit 1 Tablet 1 EACH PO (16:53)
[2025-06-18] MEDS: sennosides-docusate Tablet 2 TAB PO (16:54)
[2025-06-18] MEDS: chlorhexidine gluconate 0.12% Btl 473 mL 30 ML MUCOUS MEM ×2 (16:55→22:40)
[2025-06-18] MEDS: ondansetron 2 mg/ML SDV 2 mL 4 MG IVP (17:02)
[2025-06-19] MEDS: ceFAZolin 2,000 MG in sodium chloride 0.9% (plus) 50 ML 100 MG IV ×2 (01:20→08:50)
[2025-06-19 03:55] VITALS: BP 107/62; PULSE 73; RESP 17; TEMP 36.8; O2SAT 95
[2025-06-19] MEDS: acetaminophen 1,000 MG/100 ML PIGGYBACK 400 MG IV (04:32)
[2025-06-19] MEDS: calcium carb-vit d 600mg/400unit 1 Tablet 1 EACH PO (04:34)
[2025-06-19] MEDS: chlorhexidine gluconate 0.12% Btl 473 mL 30 ML MUCOUS MEM (04:34)
[2025-06-19] MEDS: sennosides-docusate Tablet 2 TAB PO (04:34)
[2025-06-19] MEDS: multivitamin therapeutic Tablet 1 TAB PO (04:34)
[2025-06-19] MEDS: mupirocin oint 22 gm 1 APPLIC NASAL (04:35)
[2025-06-19 05:59] LABS: Hematocrit 39.9 % (37-53); Hemoglobin 13.70 g/dL (11.27-16.99); Mean Corpuscular HGB Conc 34.3 g/dL (30-55); Mean Corpuscular Hemoglobin 31.0 pg (27-33); Mean Corpuscular Volume 90.3 fl (82-101); Nucleated Red Blood Cells % 0 %; Platelet Count 177 10^3/cmm (157-399); Red Blood Count 4.42 10^6/uL (3.85-5.65); White Blood Count 14.38 10^3/uL (3.29-11.43)
[2025-06-19 06:17] LABS: Anion Gap 12.9 (5-19); Blood Urea Nitrogen 16 mg/dL (8-23); Calcium 8.5 mg/dL (8.5-10.5); Carbon Dioxide 24 mmol/L (22-29); Chloride 107 mmol/L (98-107); Glucose 110 mg/dL (65-115); Osmolality Calculated 292 mOsm/kg (285-295); Potassium 3.9 mmol/L (3.5-5.1); Sodium 140 mmol/L (136-145)
--- NOTE | 2025-06-19 07:27 | PM.DCS ---
Discharge Providers Date of Admission: 06/18/25 12:09 Date of Discharge: June 19, 2025 Attending Provider at Admission: Ronan Rodríguez DO Attending Provider at Discharge: Ronan Rodríguez DO Primary Care Provider: Abbe Sewell DO Reason for Visit Reason for Visit: M25.559 Brief History: Status post left hip open trochanteric bursectomy, left hip gluteus medius tendon repair with graft augmentation Hospital Course Hospital Course Patient was brought to the hospital through the preoperative holding area with plan for left hip open trochanteric bursectomy, left hip gluteus medius tendon repair with possible graft augmentation for left hip trochanteric bursitis and gluteus medius tendon tear . Once cleared by anesthesia for surgery subsequently was taken back to the operative suite underwent anesthesia per the anesthesia department and then underwent left hip open trochanteric bursectomy and left hip gluteus medius tendon repair with graft augmentation without any issues or complications. Had hip abduction brace on in place and was placed by therapy as well as an abduction pillow was applied while lying in bed. Patient was then subsequently taken back to PACU in stable condition recovering well. Once recovered, patient was then subsequently admitted to the floor postoperatively. Patient was admitted to coordinate appropriate home health care as well as to work with therapy given his age and restrictions that he would have. Patient is to be toe-touch weightbearing with brace on in place when he is up and mobilizing and utilize walker. If lying in bed recommended abduction pillow and can remove brace as this will be uncomfortable while lying in bed. He was instructed by this and educated latest with physical therapy and progress with physical therapy appropriately during the hospitalization. PT/OT. Pain control. DVT prophylaxis. Postoperative antibiotics . dressing was change as needed. Patient progressed appropriately on postoperative day 1 and was ready for discharge at that time. Pt was determined on postoperative day [1 ] the patient was stable for discharge from orthopedic standpoint. Patient's labs were monitored daily. Patient will receive appropriate pain medication as well as DVT prophylaxis postoperatively. Appropriate discharge instructions as well. Patient was then discharged in stable condition. Patient will discharge home. Pt will follow-up with Orthopedics in the office in 2 weeks. Patient understands and agrees with current plan. All questions answered. Understands there is any issues or concerns and contact the office. Physical Exam Narrative: Left hip examination: Hip abduction brace is on in place, dressing on in place, clean dry and intact. No evidence of saturation. Patient has normal postoperative swelling and tenderness to palpation to the hip. Compartments are soft compressible,'s calf soft and nontender. Sensations intact to light touch distally. Distal pulses are palpable. Patient is able to wiggle toes as well as plantarflex and dorsiflex ankle. Discharge Data Studies Completed and Pending Pending at discharge Category Date Time Status Basic Metabolic Panel AM LABS Lab 06/20/25 04:00 Ordered Basic Metabolic Panel AM LABS Lab 06/21/25 04:00 Ordered Complete Blood Count w/Auto AM LABS Lab 06/20/25 04:00 Ordered Complete Blood Count w/Auto AM LABS Lab 06/21/25 04:00 Ordered Laboratory Results WBC 14.38 10^3/uL (3.29-11.43) H 06/19/25 04:49 RBC 4.42 10^6/uL (3.85-5.65) 06/19/25 04:49 Hgb 13.70 g/dL (11.27-16.99) 06/19/25 04:49 Hct 39.9 % (37-53) 06/19/25 04:49 MCV 90.3 fl (82-101) 06/19/25 04:49 MCH 31.0 pg (27-33) 06/19/25 04:49 MCHC 34.3 g/dL (30-55) 06/19/25 04:49 RDW 13.3 % (12.1-15.1) 06/19/25 04:49 Plt Count 177 10^3/cmm (157-399) 06/19/25 04:49 MPV 10.6 fL (7.4-10.4) H 06/19/25 04:49 Neut % (Auto) 77.9 % 06/19/25 04:49 Lymph % (Auto) 13.6 % 06/19/25 04:49 [place] % (Auto) 7.9 % 06/19/25 04:49 Eos % (Auto) 0.0 % 06/19/25 04:49 Baso % (Auto) 0.1 % 06/19/25 04:49 Neut # (Auto) 11.19 10^3/uL (1.8-7.7) H 06/19/25 04:49 Lymph # (Auto) 2.0 10^3/uL (0.8-4.8) 06/19/25 04:49 [place] # (Auto) 1.1 10^3/uL (0.2-0.9) H 06/19/25 04:49 Eos # (Auto) 0.0 10^3/uL (0.0-0.8) 06/19/25 04:49 Baso # (Auto) 0.0 10^3/uL (0.0-0.1) 06/19/25 04:49 Nucleated RBC % (auto) 0 % 06/19/25 04:49 Nucleated RBCs # 0.0 /100WBC 06/19/25 04:49 Sodium 140 mmol/L (136-145) 06/19/25 04:49 Potassium 3.9 mmol/L (3.5-5.1) 06/19/25 04:49 Chloride 107 mmol/L (98-107) 06/19/25 04:49 Carbon Dioxide 24 mmol/L (22-29) 06/19/25 04:49 Anion Gap 12.9 (5-19) 06/19/25 04:49 BUN 16 mg/dL (8-23) 06/19/25 04:49 Creatinine 0.8 mg/dL (0.7-1.2) 06/19/25 04:49 GFR Calculation 95.6 mL/min (90-130) 06/19/25 04:49 Glucose 110 mg/dL (65-115) 06/19/25 04:49 Calculated Osmolality 292 mOsm/kg (285-295) 06/19/25 04:49 Calcium 8.5 mg/dL (8.5-10.5) 06/19/25 04:49 Vitals Last Vital Signs Temp 98.2 F 06/19/25 03:55 Pulse 73 06/19/25 03:55 Resp 17 06/19/25 03:55 BP 107/62 06/19/25 03:55 Pulse Ox 95 06/19/25 03:55 O2 Del Method Room Air 06/19/25 03:55 O2 Flow Rate 8 06/18/25 11:22 Discharge Plan Discharge Patient Disposition: Home Health Service Condition: Stable Prescriptions: New aspirin 325 mg tablet 325 mg PO DAILY 30 Days Qty: 30 0RF hydrocodone-acetaminophen 7.5-325 mg tablet 1 tab PO Q6H PRN (Reason: pain) Qty: 20 0RF Continued multivitamin Tablet 1 tab PO DAILY zinc sulfate 50 mg zinc (220 mg) tablet 50 mg PO BID tamsulosin 0.4 mg capsule 0.4 mg PO DAILY cholecalciferol (vitamin D3) 10 mcg (400 unit) capsule 10 mcg PO DAILY saw palmetto 450 mg capsule 450 mg PO BID (DME) Hospital Bed See Rx Instructions .Route .MEDSUPPLY Qty: 1 0RF Rx Instructions: As directed: Beneficiary requires positioning of the body in ways not feasible with an ordinary bed in order to alleviate pain. Beneficiary requires a bed height different than a fixed height hospital bed to permit transfers to chair, wheelchair or standing position. Beneficiary required frequent changes in body position and or has an immediate need for a change in position. Beneficiary meets criteria for a fixed height hospital bed. 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 OK for DC: Orthopedics Discharge Order = DC NOW: Discharge Order (Routine); Ordered 06/19/25 Ordered By: Abbe Sewell Referrals: [facility] ([facility]) [Outside] Ronan Rodríguez DO [Physician, Orthopedics] - 07/07/25 2:30 pm Discharge Diet: Regular Discharge Activity: Limit activity as instructed and Use walker/crutches as instructed Patient Instructions: Hydrocodone/Acetaminophen (By mouth), Aspirin (By mouth), Ondansetron (By mouth), Acute Wound Care (DC), Opioid Safety, Post Anesthesia Care, Patient Portal & Kamala Instructions Activity Restrictions/Additional Instructions: Orthopedic discharge instructions: Recommend sponge baths for first 2 weeks Casey Dressing--Keep dressing on and dry. Casey dressing will stay on until follow up appt in 2 weeks. The battery pack for the dressing will at 5-7 days. Battery pack can be removed and discarded once batteries . Toe-touch weightbearing to left leg and use walker for ambulation When lying down and not ambulating okay to remove hip brace and use wedge pillow when laying down. Wear hip brace when up and ambulating!!!! Posterior hip precautions (avoid excess excessive hip flexion past 90 degrees and internal rotation and do not cross midline with left leg) Take DVT prophylaxis (aspirin) as prescribed for blood clot prevention Take pain medication as prescribed Take antinausea medication as needed Supplement with Citracal vitamin D for bone health and healing Ice as needed for pain and swelling No baths or soaks May supplement for pain with Tylenol [id number] as needed(500 mg every 8 hours-do not exceed more than 3000mg in 24-hour period) Follow-up in the orthopedic office in 2 weeks from date of surgery Contact the office for any questions or concerns per (fevers, increased drainage or redness around the incision site etc.) Discharge Attestations Time Spent in Discharge Care*: less than 30 min Quality Metrics Clinical Quality Measures [ No reported AMI, CVA or VTE this stay] Coding Level of Care Code Acute Code for Chg Willam
[2025-06-19 08:00] VITALS: BP 115/66; PULSE 78; RESP 18; TEMP 36.6
[2025-06-19 11:09] VITALS: BP 126/68; PULSE 87; RESP 18; TEMP 36.6; O2SAT 94
[2025-06-19 12:05] VITALS: BP 126/68; PULSE 87; RESP 18; TEMP 36.6; O2SAT 94
== END 2025-06-19 12:07 | disposition home health service (06) ==
LOC: MEDSURG 12:10
PROVIDERS: Admitting Provider Student in an Organized Health Care Education/Training Program; PCP Electrodiagnostic Medicine; Visit Provider Student in an Organized Health Care Education/Training Program
PROC: (CPT 27062; principal; 2025-06-18 09:00)
PROC: (CPT 27062; 2025-06-18 09:00)
DX: M70.62 Trochanteric bursitis, left hip (principal); S76.322A Laceration of muscle, fascia and tendon of the posterior muscle group at thigh level, left thigh, initial encounter; X58.XXXA Exposure to other specified factors, initial encounter; K21.9 Gastro-esophageal reflux disease without esophagitis; G47.30 Sleep apnea, unspecified; Z87.891 Personal history of nicotine dependence
CPT/HCPCS: 27062; 27299; 36415; 80048; 85025; 97110; 97116; 97162; 97530; 97760; C1713; C1762; G0378; J0131; J0690; J1100; J1885; J2405; J2704; J2795; J3010; J3373; J3490; J7120; J9999

== ENCOUNTER 2025-06-29 10:21 | Observation (INO) | payer MEDICARE, OTHER, SELFPAY ==
[2025-06-29 10:22] VITALS: BP 143/81; PULSE 84; RESP 16; TEMP 36.8; O2SAT 97; BMI 30.7
--- NOTE | 2025-06-29 10:33 | XRR_ITS ---
PROCEDURE INFORMATION: Exam: XR Right Knee Exam date and time: 06/29/2025 10:38 AM Age: 69 years old Clinical indication: Pain; Knee; Right; Additional info: Right lateral knee pain x3 days TECHNIQUE: Imaging protocol: Radiologic exam of the right knee. Views: 3 views. COMPARISON: CR XR knee RT 3V* [id number] 12/23/2024 4:54 PM FINDINGS: Bones/joints: Mild tricompartment narrowing and spurring. No fracture or dislocation. Soft tissues: Normal. XR/XR knee RT 3V* [id number] IMPRESSION: No acute findings.
--- NOTE | 2025-06-29 10:38 | W.ED.EXTPRO ---
HPI - Extremity Problem General: Chief complaint: Extremity Injury, Lower Stated complaint: knee pain Source: patient and old records reviewed Mode of arrival: EMS Limitations: no limitations History of Present Illness: Patient is a 6-year-old male who presents to the emergency department by ambulance for right knee pain since Sunday. Patient recently had surgery on 06/19 for procedure for left hip trochanteric bursitis as well as repair of glute medius, and has been rehabbing this and states that he has been informed not to bear any weight on the left lower extremity. He notes that on Sunday he was ambulating with a walker and had swindled and lost balance, twisting his right knee. He has been elevating it, treating with [id number] medications and states overall pain has been manageable but has not gotten any better, and there is point tenderness to the right lateral knee. He does note that when he dangles the leg over his bed, the pain gets severe to the bottom of his knee. Denies any pain in his calf. No swelling pallor or coolness or redness to the right lower extremity. No warmth to the joint and no fevers or nausea/vomiting. Symptoms are controlled at this time, his vitals are stable. MD Complaint: joint pain Onset (ago): day(s) Pain Consistency: constant Location: right and knee Radiation: none Exacerbating factors: range of motion and weight bearing Associated symptoms: Deny chest pain, fever(s) or rash Related Data Home Medications ?Medication ?Instructions ?Recorded ?Confirmed omeprazole 40 mg capsule,delayed 40 mg PO DAILY 12/03/24 06/29/25 release cholecalciferol (vitamin D3) 10 10 mcg PO DAILY 02/10/25 06/29/25 mcg (400 unit) capsule multivitamin 1 tab PO DAILY 02/10/25 06/29/25 saw palmetto 450 mg capsule 450 mg PO BID 02/10/25 06/29/25 tamsulosin 0.4 mg capsule 0.4 mg PO DAILY 02/10/25 06/29/25 zinc sulfate 50 mg zinc (220 mg) 50 mg PO BID 02/10/25 06/29/25 tablet ondansetron 4 mg disintegrating 4 mg PO Q8H PRN Nausea And Vomiting 06/29/25 06/29/25 tablet Previous Rx's ?Medication ?Instructions ?Recorded Hospital Bed #1 ea 06/15/25 aspirin 325 mg tablet 325 mg PO DAILY 30 days #30 tabs 06/18/25 hydrocodone 7.5 mg-acetaminophen 1 tab PO Q6H PRN pain #20 tabs 06/18/25 325 mg tablet Allergies Allergy/AdvReac Type Severity Reaction Status Date / Time No Known Allergies Allergy Verified 06/17/25 10:34 Review of Systems General: Reports: 10 or more systems reviewed and unremarkable except in HPI and below Const: Denies: fever(s) or chills Card: Denies: chest pain Resp: Denies: dyspnea or productive cough GI: Denies: abdominal pain, nausea, vomiting or diarrhea : Denies: flank pain Musc: Reports: joint pain (Right knee); Denies: neck pain, back pain, extremity pain, extremity swelling, joint swelling, joint redness, joint warmth, limited range of motion or muscle weakness Skin/Breast: Denies: rash Neuro: Denies: headache(s), numbness in extremities or weakness in extremities PFSH ED PFSH: Social History Smoking and tobacco/nicotine status: former use of tobacco/nicotine Alcohol intake: never Substance/Drug Use: former Physical Exam Const: COMMON NORMALS: no acute distress, patient oriented x3, no limitations, healthy appearing, alert and well nourished HENMT: COMMON NORMALS: normocephalic and atraumatic HEAD & SCALP: normocephalic and atraumatic Neck/C-Spine: COMMON NORMALS: full ROM, supple and no meningeal signs Extremity: NARRATIVE EXTREMITY EXAM: Point tenderness to palpation to the joint line of the right lateral knee. There is no obvious large effusion or diffuse joint swelling. Range of motion is unaffected. No calf tenderness, negative Homans' sign. No redness of the joint, no warmth. Neuro: COMMON NORMALS: patient oriented x3, moves all extremities, no focal motor deficits and no sensory deficits noted SENSORIUM/ORIENTATION: Yes alert MENINGEAL SIGNS: Yes no meningeal signs Skin: COMMON NORMALS: no rashes or lesions noted GENERAL SKIN EXAM: no rashes or lesions noted Course Vital Signs: Vital signs: Vital Signs Temperature 98.2 F 06/29/25 10:22 Pulse Rate 84 06/29/25 10:22 Respiratory Rate 16 06/29/25 10:22 Blood Pressure 143/81 06/29/25 10:22 Pulse Oximetry 97 06/29/25 10:22 Oxygen Delivery Me thod Room Air 06/29/25 10:22 MDM - Extremity (Nontraumatic) Medical Decision Making Patient presents to the emerged department by ambulance for right knee pain that has been bothering him over the weekend. Earlier this month he had surgery to repair left greater trochanteric bursitis and has been rehabbing this, nonweightbearing with instructions for limited range of motion. Injured the right knee in the process, and family arrives stating they cannot take care of the patient at home and essentially he is upper body only. X-ray of his right knee did not demonstrate any abnormality, there is mild to moderate concern of an internal issue due to the amount of pain he has been experiencing and inability to bear weight, however he would likely require MRI. Primarily this patient is likely requiring rehab placement, consult to case management to come talk to the patient in the emergency department they state that they will be 3 to 4 hours until they can come discussed. Because of this patient placed in observation services by Dr. Kong. Dr. Ulrich briefed on this patient's case and will place admit orders. Lab Data Radiology Impressions Knee X-Ray 06/29/25 10:33 IMPRESSION: No acute findings. 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
--- OUTSIDE RECORDS SUMMARY | 2025-06-29 10:57 | XMS_ITS | Continuity of Care Document ---
Author Organization [facility] [place], LMary, [facility] ([facility]) Address [address] [place] [address] Care Team Providers Care Bead Forming Machine Operator Name Role Phone SEWELL, ANNA Primary Care Provider Unavailabl e Assessment No assessment recorded. Plan of Treatment Reminders Order Date Submit Date Provider Last Modified By Organization Details Last Modified Time Details Appointments None recorded. Lab None recorded. Referral ophthalmolo gist referral 2024 025 [email or web address] 8 Yan Arellano MD, [address] [place], [address], 5 17:31:36 Procedures None recorded. Surgeries None recorded. Imaging None recorded. Medication Orders None recorded. Patient TargetsNo targets recorded. Patient InstructionsNo instructions recorded. 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 5 16:30:29 Benign prostatic hyperplasia with outflow obstruction 310694971 Active 2022 Kasey Ball [facility], Jesus ManuelL.CТатьяна 5 16:30:29 Obesity 538600830 Active 2023 Kasey Ball [facility] 5 16:30:29 Rupture of tendon of biceps 267427472 Active 2023 Kasey Ball [facility], LТатьянаL.CТатьяна 5 16:30:29 Right rotator cuff syndrome 4886633209460 09 Active 2023 Kasey Ball [facility] 5 16:30:29 Obstructive sleep apnea of adult 4236288534232 Active 2023 Kasey Ball [facility] 5 16:30:29 Chest pain 22262943 Active 2023 Kasey Ball [facility] 5 16:30:29 Muscle spasm of cervical muscle of neck 541872734500 Active 2023 Kasey Ball [facility] 5 16:30:29 Neck pain 61150741 Active 2023 Kasey Ball [facility] 5 16:30:29 Urinary outflow obstruction 228410553 Active 2024 Kasey Ball [facility], L.L.CТатьяна 5 17:35:20 Enthesopath y of left hip 2382271688591 9101 Active 2024 Anna Sewell DO [address] [place], [address], [facility] 21:29:36 Arthritis of right knee joint 8099181659126 102 Active 2024 Anna Sewell DO [address] [place], [address], [facility], L.L.CТатьяна 21:29:44 Problem Notes None recorded. Procedures Surgical History Date Name Laterality Status Provider Name and Address Organization Details Recorded Time 5 Joint Inj Kenalog- Shoulder, Hip, Knee completed Anna Sewell DO [address] [place], [address], [facility] 01/01/2025 21:33:00 3 radiography of shoulder completed TERRELL WU [facility] 07/24/2023 14:55:01 Knee Surgery completed Joy Stein [facility] 2024 10:12:11 Imaging Results None recorded. Procedure Notes None recorded. Medical Equipment None Reported. Allergies No known drug allergies Medications Name Sig Start Date Stop Date Status Note LastModified by Organization Details LastModified Time cyclobenz aprine 10 mg tablet TAKE 1 TABLET BY MOUTH TWICE DAILY NEEDED FOR MUSCLE SPASM AND PAIN 07/04 completed Not Available Not Available Not Available doxycycli ne hyclate 100 mg capsule TAKE 1 CAPSULE BY MOUTH TWICE DAILY FOR 7 DAYS 03/13 completed Not Available Not Available Not Available tizanidin e 2 mg tablet up to 3 times a day as needed for pain and spasm 08/14 completed DM/sd; 64718; Recorded 04/27/20 3:55PM by Ellyn Bettencourt (Authori alberto through Anna Sewell DO), Refill Request; Refill Quantity : 35; Tablet; Not Available Not Available Not Available azithromy sedrick 250 mg tablet TAKE 2 TABLETS BY MOUTH ON DAY 1, AND THEN TAKE 1 TABLET BY MOUTH ONCE A DAY ON DAY 2 THROUGH DAY 5 10/28 completed Not Available Not Available Not Available benzonata te 200 mg capsule TAKE 1 CAPSULE BY MOUTH THREE TIMES DAILY NEEDED FOR COUGH 10/28 completed Not Available Not Available Not Available meloxicam 15 mg tablet Take 1 tablet by mouth once daily 03/13 completed Not Available Not Available Not Available prednison e 20 mg tablet TAKE 1 TABLET BY MOUTH ONCE DAILY IN THE MORNING FOR 7 DAYS 10/28 completed Not Available Not Available Not Available omeprazol e 40 mg capsule,d elayed release Take 1 capsule by mouth once daily 2024 active Not Available Not Available Not Avai lable amoxicill in 500 mg tablet TAKE 2 TABLETS BY MOUTH TWICE DAILY FOR 10 DAYS 01/02 completed Not Available Not Available Not Available Kenalog 40 mg/mL suspensio n for injection Take 40 mg by injectio n route. 04/09 completed Not Available Not Available Not Available betametha sone acetate and sodium phos 6 mg/mL suspensio n for injection Take 6 mg every day by injectio n route for 1 day. 03/13 completed Not Available Not Available Not Available tamsulosi n 0.4 mg capsule TAKE 1 CAPSULE BY MOUTH ONCE DAILY FOR PROSTATE active Not Available Not Available No t Available triamcino lone acetonide 0.1 % topical ointment APPLY A THIN LAYER TO THE AFFECTED AREA TWICE A DAY 04/29 completed Not Available Not Available Not Available sertralin e 25 mg tablet TAKE 1 TABLET BY MOUTH ONCE DAILY IN THE EVENING FOR MOOD 07/04 completed Not Available Not Available Not Available levofloxa sedrick 500 mg tablet TAKE 1 TABLET BY MOUTH ONCE DAILY FOR 10 DAYS 12/23 completed Not Available Not Available Not Available albuterol sulfate HFA 90 mcg/actua tion aerosol inhaler INHALE 2 PUFFS BY MOUTH EVERY 4 HOURS NEEDED FOR SHORTNES S OF BREATH 03/13 completed Not Available Not Available Not Available meloxicam daily 08/14 completed DM/sd; 37548; Recorded 06/08/20 4:01PM by Ellyn Bettencourt (Mohinder dominguez through Anna Sewell DO), Refill Request; Refill Quantity : 90; Tablet; Not Available Not Available Not Available Allergy Relief 08/14 completed 0; Recorded 04/27/20 10:47AM by Maria Rodriguez, Office Visit; Not Available Not Available Not Available Allergy Relief (cetirizi ne) 07/04 completed Not Available Not Available Not Available Move Free Joint Health 07/04 completed Not Available Not Available Not Available Mens Multivita min High Potency active Not Available Not Available Not Available Paxlovid 300 mg (150 mg x 2)-100 mg tablets in a dose pack TK 2 NIRMATRE LVIR TS AND 1 RITONAVI R T TOGETHER PO BID FOR 5 DAYS BID FOR 5 DAYS 08/14 completed Not Available Not Available Not Available Vitals Date Recorded Body height Body mass index (BMI) Body weight Oxygen saturation Heart rate Respiratory rate Body temperature Systolic And Diastolic Provider Name and Address Organization Details Last Updated DateTime 167.64 cm 31.5 kg/m2 89199.5 1 g 97 % 86 /min 16 /min 98.2 [degF] 160/90 mm[Hg] Cookie May [facility] 5 10:54:06 Social History Question Answer Notes LastModified by Watson Brownat Bioniz Details LastModified Time Tobacco Smoking Status Former Smoker Joy olivares [facility] 2024 10:11:30 What Was The Date Of Your Most Recent Tobacco Screening? 10/28/2024 Information not available 10/28/2024 Sex: Unknown Functional Status Question Answer Note LastModified by Organizat ion Details LastModified Time Do you use any illicit or recreational drugs? No [email or web address] Information not available 01/02/2023 Do you or have you ever used any other forms of tobacco or nicotine? No [email or web address] Information not available 01/02/2023 What is your level of alcohol consumption? None [email or web address] Information not available 01/02/2023 Mental Status None recorded. Family History Nothing Reported. Medical History Condition Response Coronary Artery Disease N Other N Gout N Kidney Stones N Blood Diseases N Hyperthyroidism N Breast Cancer N Blood Transfusion N Hypothyroidism N Lung Disease N COPD N Depression N Defects or Inherited Disease N Developmental or Behavioral Disorders N Breast Problem N Difficulty Swallowing N Anesthesia Complications N Meniere's disease N Anxiety Disorder N Muscle, Joint, or Bone Problems N Vision or Eye Problems N Arthritis N Infertility N Polyps N Cancer N Stroke N Varicosities N Endometriosis N Bladder or Kidney Problems N High Cholesterol N Liver Disease N Fibromyalgia N Headaches N Kidney Disease N Allergies/Hayfever Y Heart Problems N Ear or Hearing Problems N Hospitalizations N Thyroid Problems N GI Problems N ADD/ADHD N Skin Problems N Eating Disorder N Anemia N Constipation N Mental Illness N Ovarian Cancer N Diabetes N Bedwetting N Seizures/Epilepsy N Tuberculosis N Eczema N Diverticulitis N Abuse/Domestic Violence N Asthma N Reflux/GERD N Hepatitis N Heart Disease N Pulmonary Embolism N Chronic Ear Infections N Pre-Eclampsia N Hypertension N Chicken Pox N Autism Spectrum Disorder (ASD) N Osteoporosis N Thrombophilias N Immunizations Vaccine Type Date Status Note Provider Nam e and Address Organization Details Recorded Time Influenza, high-dose, quadrivalent, PF 1 completed [facility] 03/25/2023 14:36:51 COVID-19, mRNA, LNP-S, PF, 100 mcg/0.5mL dose or 50 mcg/0.25mL dose 1 [facility] 03/25/2023 14:36:51 COVID-19, mRNA, LNP-S, PF, 100 mcg/0.5mL dose or 50 mcg/0.25mL dose 1 completed [facility] 03/25/2023 14:36:51 Influenza, split virus, trivalent, PF 6 completed [facility] 03/25/2023 14:36:52 Influenza, split virus, trivalent, PF 5 completed [facility] 03/25/2023 14:36:52 Td(adult) unspecified formulation 2 completed Not Available [facility] 09/13/2023 10:27:37 Past Encounters Encounter ID Performer Location Encounter Start Date Encounter Closed Date Diagnosis/Indication Diagnosis SNOMED-CT Code Diagnosis ICD10 Code Diagnosis IMO Codes Diagnosis Note [id number] JESSY MCCLELLAN [facility] ([facility]) [address] [place] [address] 04/09/2025 10:45:55 04/09/2025 11:59:20 Pain of right eye 3983518888 36144 H57.[id number] Sewell. Will send to [facility] for appt this afternoon for further evaluation and treatment. Appt made for 3 pm today. Health Concerns Section Related Observation LastModified by Organization Detai ls LastModified Time None Recorded Concern Status LastModified by Organization Details LastModified Time None Recorded Payers Encounter Date Sequence Insurance Name Policy Number Policy Johnson Covered Member ID Johnson Member ID Guarantor Name 04/09/2025 1 [place] Max B Costello [id number] Max B Costello 04/09/2025 2 [employer] SUPPLEMENTAL - [employer] (MEDICARE SUPPLEMENT) Max B Costello [id number] Max B Costello Notes Date Note Type Note Provider Name and Address Organization Details Recorded Time 04/09/2025 text/html Red EyeReported by PatientROS as noted in the HPI walk in patientpatient is here today for sinus pressure that started a couple of weeks ago then last night his right eye turned red, hurts and is swollen. JESSY MCCLELLAN [address] [place], [address], [facility] - [facility], Marisa 04/09/2025 11:53:48
--- OUTSIDE RECORDS SUMMARY | 2025-06-29 10:57 | XMS_ITS | Encounter Summary ---
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
--- OUTSIDE RECORDS SUMMARY | 2025-06-29 10:57 | XMS_ITS | Encounter Summary ---
Author Organization [employer] Address [address] [place] [address] Care Team Providers Care Electrical Research Engineer Name Role Phone Unavailable Primary Care Provider Unavailabl e Encounter Details Date Type Department Care Team (Late st Contact Info) Description 06/23/2025 External Device Data [place] [facility]STRA[place] Provider, Abstract NO ADDRESS ON FILE Social History Tobacco Use Types Packs/Day Years Used Date Smoking Tobacco: Former Smokeless Tobacco: Former Alcohol Use Standard Drinks/Week Comments Not Currently 0 (1 standard drink = 0.6 oz pur e alcohol) Sex and Gender Information Value Date Recorded Sex Assigned at Not on file 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
--- OUTSIDE RECORDS SUMMARY | 2025-06-29 10:57 | XMS_ITS | Clinical Summary ---
Author Organization [facility] Address [address] [place] [address] Phone Care Team Providers Care Inhalation Therapy Teacher Name Role Phone Unavailable Primary Care Provider Unavailabl e Allergies No known active allergies Medications meloxicam (MOBIC) 15 mg tablet TAKE 1 TABLET BY MOUTH ONCE DAILY FOR ARTHRITIS 0 Active omeprazole magnesium (PRILOSEC OTC ORAL) Take by mouth daily. 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 Gender Identity Not on file Sexual Orientation Not on file Last Filed Vital Signs Vital Sign Reading Time Taken Comments Blood Pressure 135/84 04/28/2020 9:32 AM CDT Pulse 76 04/28/2020 9:32 AM CDT Temperature - - Respiratory Rate - - Oxygen Saturation - - Inhaled Oxygen Concentration - - Weight 83.9 kg (185 lb) 02/06/2020 8:23 AM CDT Height 167.6 cm (5' 6 ) 02/06/2020 8:23 AM CDT Body Mass Index 29.86 02/06/2020 8:23 AM CDT Plan of Treatment Health Maintenance Due Date Last Done Comments DTAP/TDAP/TD VACCINES (1 - Tdap) 1973 COLORECTAL SCREENING 1999 Colorectal Cancer Screening 1999 FIT-DNA Q 3 years 1999 FIT/FOBT Q 1 year 1999 Flex Sig/CT Colonography Q 5 years 1999 PNEUMOCOCCAL VACCINE 50+ YEARS (1 of 1 - PCV) 07/04/20 04 ZOSTER VACCINE (1 of 2) 2004 INFLUENZA VACCINE (#1) 2025 RSV VACCINE (60+ or ) (1 - 1-dose 75+ series) 2029 Insurance
--- OUTSIDE RECORDS SUMMARY | 2025-06-29 10:57 | XMS_ITS | Encounter Summary ---
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
--- OUTSIDE RECORDS SUMMARY | 2025-06-29 10:57 | XMS_ITS | Clinical Summary ---
Author Organization [facility] Address [address] Smith: [place] [address] Care Team Providers Care Band Shover Name Role Phone Unavailable Primary Care Provider Unavailabl e Allergies No known active allergies Medications meloxicam (MOBIC) 15 mg tablet TAKE 1 TABLET BY MOUTH ONCE DAILY FOR ARTHRITIS 0 Active tamsulosin (FLOMAX) 0.4 mg capsule Take 0.4 mg by mouth daily. Active omeprazole (PriLOSEC) 40 mg Capsule, Delayed Release(E.C.) Take 40 mg by mouth daily. Active DICLOFENAC SODIUM TOPICAL Apply to affected area daily. Active zinc GLUCONATE 50 mg Tablet Take 50 mg by mouth daily. Active [place] Fruit 450 mg Capsule Take by mouth daily. Active Active Problems No known active problems Encounters Date Type Department Care Team Description 06/23/2025 External Device Data [facility] ABSTRACTION Provider, Abstract 06/05/2025 12:50 PM CDT Office Visit [facility] [place] [address] [address] Rodger Love MD [place] retinal degeneration of left eye (Primary Dx); Senile reticular pigmentary degeneration, left; Age-related nuclear cataract of both eyes 05/12/2025 External Device Data [facility] ABSTRACTION Provider, Abstract 04/22/2025 External Device Data [facility] ABSTRACTION Provider, Abstract 03/31/2025 External Device Data [facility] ABSTRACTION Provider, Abstract from Last 3 Months Social History Tobacco Use Types Packs/Day Years Used Date Smoking Tobacco: Former Smokeless Tobacco: Former Alcohol Use Standard Drinks/Week Comments Not Currently 0 (1 standard drink = 0.6 oz pur e alcohol) Sex and Gender Information Value Date Recorded Sex Assigned at Not on file 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 Gender Identity Not on file Sexual Orientation Not on file Last Filed Vital Signs Vital Sign Reading Time Taken Comments Blood Pressure 102/66 01/20/2025 12:15 PM CDT Pulse 76 04/28/2020 9:32 AM CDT Temperature - - Respiratory Rate - - Oxygen Saturation - - Inhaled Oxygen Concentration - - Weight 85.5 kg (188 lb 6.4 oz) 01/20/2025 12:15 PM CDT Height 167.6 cm (5' 6 ) 01/20/2025 12:15 PM CDT Body Mass Index 30.41 01/20/2025 12:15 PM CDT Plan of Treatment Health Maintenance Due Date Last Done Comments Pre-Diabetes and Diabetes Screening 1954 COLORECTAL SCREENING 1999 Colorectal Cancer Screening 1999 FIT-DNA Q 3 years 1999 FIT/FOBT Q 1 year 1999 Flex Sig/CT Colonography Q 5 years 1999 PNEUMOCOCCAL VACCINE 50+ YEA RS (1 of 1 - PCV) 2004 ZOSTER VACCINE (1 of 2) 2004 Abdominal Aortic Aneurysm (A AA) Screening 2019 DTAP/TDAP/TD VACCINES (1 - Tdap) 04/28/2022 04/27/20 22 INFLUENZA VACCINE (#1) 2025 , 04/25/2016, 05/14/2015 COVID-19 Vaccine (3 - season) 04/06/202511/2020, 05/10/2021 RSV VACCINE (60+ or ) (1 - 1-dose 75+ series) 2029 Procedures Procedure Name Priority Date/Time Associated Diagnosis Comments OCT, RETINA - OU - BOTH EYES Routine 06/05/2025 1:14 PM CDT [place] retinal degeneration of left eye from Last 3 Months Results * OCT, RETINA - OU - BOTH EYES (06/05/2025 1:14 PM CDT) Narrative [facility] OPHTHALM[facility] ORDERS - 06/05/2025 2:55 PM CDT Few drusen OU us Rodger Love MD OPHTH TOMOGRAPHY Edited Result - Final [facility] OPHTHALMOLOGY ORDERS from Last 3 Months Insurance MEDICARE PART A AND B [facility]
--- OUTSIDE RECORDS SUMMARY | 2025-06-29 10:57 | XMS_ITS | Data Portability ---
Author Organization [facility], [facility], [facility] Address [address] [address] Care Team Providers Care Communication And Outreach Manager Name Role Phone LAMONT ANNA Primary Care Provider Unavailabl e Assessment Encounter Date Assessment Date Assessment LastModified by Organization Details LastModified Time 12/08/2024 12/08/2024 Pt is also here today for a FACE-2-FACE evaluation for MARINO with CPAP. I reviewed ER records prior to seeing the patient today. Please see hpi above and chart for detailed records. [email or web address] Not available 12/09/2024 07:16:35 Plan of Treatment Reminders Order Date Submit Date Provider Last Modified By Organization Details Last Modified Time Details Appointments None recorded. Lab urinalysis, dipstick 2024 025 [email or web address] [facility] ([facility]), [address] [place], [address], 12:18:31 Referral ophthalmolo gist referral 2024 025 [email or web address] 8 Yan Arellano MD, [address] [place], [address], 17:31:36 orthopedic surgeon referral - Dr. Rodríguez [email or web address] [place] [address], [address] [place] [address], [address], 12:49:43 urologist referral - Dr. Pereira 2024 025 [email or web address] [facility], [address], [place], [address], 14:39:37 Procedures injection/a spiration large joint/bursa (PROC) 2024 025 [email or web address] 2 [facility], [address] [place], [facility] 1, [place], [address], 10:19:30 Surgeries None recorded. Imaging MRI, hip, w/o contrast 2024 [facility], [address] [place], [address], 08:04:02 XR, knee, 3 view 2024 [facility], [address] [place], [address], 13:57:55 XR, hip + pelvis, unilateral 2024 025 [facility] ([facility]), [address] [place], [address], 13:57:55 Medication Orders Kenalog 40 mg/mL suspension for injection 2024 025 [email or web address] Not available 10:51:14 tamsulosin 0.4 mg capsule [address] [facility], [address], [place], [address], 13:25:42 Patient TargetsNo targets recorded. Patient InstructionsNo instructions recorded. Reason for Referral Urologist Referral for Urina ry outflow obstruction Dr. Pereira Referring Physician: Anna Sewell, Family Medicine, Encounter Date: 12/08/2024 Orthopedic Surgeon Referral for Pain of hip region Dr. Rodríguez Referring Physician: Anna Sewell, [facility], Encounter Date: 12/23/2024 Bacteriologist Pharmaceutical Referral for Pain of right eye Referring Physician: Edel Nolasco, [facility], Encounter Date: 04/09/2025 Results Created Date Observation Date Name Description Value Unit Range Abnormal Flag Note LastModifiedBy Organization Detail LastModifiedTime 12/04/19 25 12/03/2024 urina lysis , dipst ick Leukocytes Negati ve Not Available [facility] ([facility]) [address] [place], [address], 12/03/2024 12:10:41 12/04/19 25 12/03/2024 urina lysis , dipst ick Nitrite negati ve Not Available [facility] ([facility]) [address] [place] [address], [address], 12/03/2024 12:10:41 12/04/19 25 12/03/2024 urina lysis , dipst ick Urobilinogen .2 Not Available [facility] ([facility]) [address] [place], [address], 12/03/2024 12:10:41 12/04/19 25 12/03/2024 urina lysis , dipst ick Protein Negati ve Not Available [facility] ([facility]) [address] [place], [address], 12/03/2024 12:10:41 12/04/19 25 12/03/2024 urina lysis , dipst ick pH 7.0 Not Available [facility] ([facility]) [address] [place], [address], 12/03/2024 12:10:41 12/04/19 25 12/03/2024 urina lysis , dipst ick Blood Negati ve Not Available [facility] ([facility]) [address] [place] [address] [place], [address], 12/03/2024 12:10:41 12/04/19 25 12/03/2024 urina lysis , dipst ick Specific [place] 1.015 Not Available [facility] ( [facility]) [address] [place], [address], 12/03/2024 12:10:41 12/04/19 25 12/03/2024 urina lysis , dipst ick Ketone Negati ve Not Available [facility] ([facility]) [address] [place], [address], 12/03/2024 12:10:41 12/04/19 25 12/03/2024 urina lysis , dipst ick Bilirubin Negati ve Not Available [facility] ([facility]) [address] [place], [address], 12/03/2024 12:10:41 12/04/19 25 12/03/2024 urina lysis , dipst ick Glucose Negati ve Not Available [facility] ([facility]) [address] [place], [address], 12/03/2024 12:10:41 12/04/19 25 12/03/2024 urina lysis , dipst ick Appearance Clear Not Available [facility] ([facility]) [address] [place], [address], 12/03/2024 12:10:41 12/04/19 25 12/03/2024 urina lysis , dipst ick Color Pale Yellow Not Available [facility] ([facility]) [address] [place], [address], 12/03/2024 12:10:41 12/26/19 25 12/23/2024 XR, knee, 3 view No observ ation record ed. [email or web address] [place] [address] [address] [place], [address], 12/30/2024 11:45:34 12/26/19 25 12/23/2024 XR, hip + pelvi s, unila teral No observ ation record ed. [email or web address] [facility] [address] [place], [address], 12/30/2024 11:45:35 01/08/20 25 01/07/2025 MRI, hip, w/o contr ast No observ ation record ed. [email or web address] [facility] [address] [place], [address], 01/22/2025 14:37:41 Result Notes None recorded. Problems Name Problem SNOMED Code Status Onset Date Resolution Date Notes Provider Name and Address Organization Details Recorded Time Gastroesoph ageal reflux disease 371247301 Active 2021 Kasey olivares [facility] 5 16:30:29 Generalized anxiety disorder 24952596 Active 2022 Kasey Ball [facility] 5 16:30:29 Hand eczema 179816208 Active 2022 Kasey olivares [facility] 5 16:30:29 Essential hypertensio n 91908645 Active 2022 Kasey olivares [facility] 5 16:30:29 Benign prostatic hyperplasia with outflow obstruction 744770255 Active 2022 Kasey olivares [facility] 5 16:30:29 Obesity 415493232 Active 2023 Kasey olivares [facility] 5 16:30:29 Rupture of tendon of biceps 118808962 Active 2023 Kaseyreese Bauere [facility] 5 16:30:29 Right rotator cuff syndrome 9650886239310 09 Active 2023 Kasey Ball [facility] 5 16:30:29 Obstructive sleep apnea of adult 3341622933636 Active 2023 Kaseyreese Bauere [facility] 5 16:30:29 Chest pain 35168109 Active 2023 Kasey Ball [facility] 5 16:30:29 Muscle spasm of cervical muscle of neck 770422377969 Active 2023 Kasey Ball [facility] 5 16:30:29 Neck pain 48211503 Active 2023 Kasey Ball [facility] 5 16:30:29 Urinary outflow obstruction 808808076 Active 2024 Kaseyjanes Bauere [facility] 5 17:35:20 Enthesopath y of left hip 7627735966747 9101 Active [address], [address], [facility] 5 21:29:36 Arthritis of right knee joint 9677750374364 102 Active [address], [address], [facility] 5 21:29:44 Problem Notes None recorded. Procedures Surgical History Date Name Laterality Status Provider Name and Address Organization Details Recorded Time 5 Joint Inj Kenalog- Shoulder, Hip, Knee completed Anna Sewell DO [address] [place], [address], [facility], Marisa 01/01/2025 21:33:00 radiography of shoulder completed TERRELL WU [facility] [place] 07/24/2023 14:55:01 Knee Surgery completed Joy Stein [facility], [place] 2024 10:12:11 Imaging Results None recorded. Procedure [...] for pain and spasm 08/14 completed DM/sd; 60842; Recorded 04/27/20 3:55PM by Ellyn Bettencourt (Authori [...] Not Available meloxicam daily 08/14 completed DM/sd; 39896; Recorded 06/08/20 22 4:01PM by Ellyn Bettencourt (i alberto through Anna Sewell DO), Refill Request; Refill Quantity : 90; Tablet; Not Available Not Available Not Available Allergy Relief 08/14 completed 0; Recorded 04/27/20 22 10:47AM by Maria Rodriguez, Office Visit; Not Available Not Available Not Available Allergy Relief (cetirizi ne) 07/04 completed Not Available Not Available Not Available Move Free Joint [facility] 07/04 completed Not Available Not Available Not [...] and Address Organization Details Last Updated DateTime 5 167.64 cm 28.9 kg/m2 27941.7 3 g 98 % 85 /min 18 /min 97.9 [degF] 160/80 mm[Hg] ELLYN SAMANTHA [facility] 5 11:58:18 Date Recorded Body height Body mass index (BMI) Body weight Heart rate Oxygen saturation Respiratory rate Systolic And Diastolic Provider Name and Address Organization Details Last Updated DateTime 5 167.64 cm 29.1 kg/m2 53759.7 3 g 79 /min 97 % 18 /min 120/76 mm[Hg] [facility] 5 12:42:14 Date Recorded Body height Body mass index (BMI) Body weight Oxygen saturation Heart rate Respiratory rate Systolic And Diastolic Provider Name and Address Organization Details Last Updated DateTime 5 167.64 cm 29.9 kg/m2 82341.5 9 g 97 % 70 /min 18 /min 120/80 mm[Hg] [facility] 5 17:36:41 Date Recorded Body height Body mass index (BMI) Body weight Oxygen saturation Heart rate Respiratory rate Systolic And Diastolic Provider Name and Address Organization Details Last Updated DateTime 5 167.64 cm 29.6 kg/m2 42081.1 g 96 % 67 /min 18 /min 110/80 mm[Hg] [facility] 5 12:57:16 Date Recorded Body height Body mass index (BMI) Body weight Oxygen saturation Heart rate Respiratory rate Body temperature Systolic And Diastolic Provider Name and Address Organization Details Last Updated DateTime 5 167.64 cm 31.5 kg/m2 27991.5 1 g 97 % 86 /min 16 /min 98.2 [degF] 160/90 mm[Hg] Cookie May [facility] 5 10:54:06 Social History Question Answer Notes LastModified by Organizat ion Details LastModified Time Tobacco Smoking Status Former Smoker Joy Stein marshall [facility] 2024 10:11:30 What Was The Date Of Your Most Recent Tobacco Screening? 10/28/2024 [email or web address] Information not available 10/28/2024 Sex: Unknown Functional Status Question Answer Note LastModified by Organizat ion Details LastModified Time Do you use any illicit or recreational drugs? No [email or web address] Information not available 01/02/2023 Do you or have you ever used any other forms of tobacco or nicotine? No Information not available 01/02/2023 What is your level of alcohol consumption? None [email or web address] Information not available 01/02/2023 Mental Status None [...] Details Recorded Time Influenza, high-dose, quadrivalent, PF completed NIESHA olivares [facility] 03/25/2023 14:36:51 COVID-19, mRNA, LNP-S, PF, 100 mcg/0.5mL dose or 50 mcg/0.25mL dose 1 completed TAMATHA GREEN null, [facility] 03/25/2023 14:36:51 COVID-19, mRNA, LNP-S, PF, 100 mcg/0.5mL dose or 50 mcg/0.25mL dose 1 completed [facility] 03/25/2023 14:36:51 Influenza, split virus, trivalent, PF 6 completed [facility] 03/25/2023 14:36:52 Influenza, split virus, trivalent, PF 5 completed [facility] 03/25/2023 14:36:52 Td(adult) unspecified formulation 2 completed Not Available [facility] 09/13/2023 10:27:37 Past Encounters Encounter ID Performer Location Encounter Start Date Encounter Closed Date Diagnosis/Indication Diagnosis SNOMED-CT Code Diagnosis ICD10 Code Diagnosis IMO Codes Diagnosis Note [id number] FREDRICK BOOKER PA-C [facility] ([facility]) [address] [place] [address] 11/20/2022 09:35:28 11/20/2022 10:30:55 Acute sinusitis 07075860 J01.90 Discussed in detail with patient the importance of completing full course of antibiotic s. Recommend flonase daily for 2 weeks to help with allergy symptoms. Continue taking daily allergy medication . If worsening condition or no improvemen t in 5-7 days, return for further evaluation . If severe chest pain or SOB occurs, go to ED. [id number] Anna Sewell DO [facility] ([facility]) [address] [place] [phone] 01/02/2023 08:13:26 01/02/2023 19:39:52 Generalized anxiety disorder 01398715 F41.1 improved, continue sertraline Screening for malignant neoplasm of colon 016709040 Z12.11 I have reviewed and discussed colon cancer screening options, including colonoscop y. Discussed risks vs benefits including risk of infection and bleeding, perforatio n, possible need for surgery, reaction to medication s, and sever injury or . We discussed pt requiring sedation and possible general anesthesia . Pt agrees to proceed with Colonoscop y at [facility]. Preliminar y procedure date will be Hand eczema 356881369 L3 0.9 I counseled the patient on diagnosis, treatment options, medication s, and expectatio ns. All questions were addresssed . They were instructed to call the office or come in for Follow Up with any questions, concerns, or worsening problems.t opical eczema creams daily. use RX steroid creams for 1-2 wks at a time with flair ups. counseled on hand washing and hand care. Obesity 128416419 E66.9 I counseled pt on obesity. We discussed risks and ways to loose weight. Pt will work on diet, exercise.p t will start daily AM schedule and start daily AM b complex. Essential hypertension 94239491 I10 BP improved with weight loss, remain off antihypert ensives. monitor daily. Benign pro static hyperplasia with outflow obstruction 090193305 N40.1 conitnue flomax. counseled [id number] Anna Sewell DO [facility] ([facility]) [address] [place] [id number] 01/21/2023 17:14:29 02/01/2023 04:09:26 [id number] EDEL NOLASCO PROGRAM MANAGER SLP [facility] ([facility]) [address] [place] [id number] 5 03/25/2023 14:05:25 03/25/2023 14:56:00 Cough 89955497 R05.9 COVID-19 899994867 U07.1 [id number] FRANCY CONDON PROGRAM MANAGER SLP [facility] ([facility]) [address] [place] [id number] 07/20/2023 09:09:17 07/20/2023 10:02:51 Pain of right shoulder joint 4236814736 9431671 M25.511 Takes Meloxicam daily. [id number] Cole FelixDO [facility] ([facility]) [address] [place] [id number] 5 07/23/2023 14:57:09 07/23/2023 16:41:26 Tendinitis of right shoulder 4441512608 189806 M75.91 [id number] Anna Sewell DO [facility] ([facility]) [address] [place] [id number] 5 08/14/2023 14:49:58 08/14/2023 16:21:13 Pain of right shoulder joint 2037921787 9596481 M25.511 I have reviewed XR results, d/w patient. Dr. Dante Sewell, showed some arthritis. Ok to resume swimming, work on different strokes with the RUE. Benign pro static hyperplasia with outflow obstruction 194280682 N40.1 continue flomax. counseled Essential hypertension 38498004 I10 BP improved with weight loss, remain off antihypert ensives. monitor daily. Gastroesop hageal reflux disease 085353156 K21.9 Continues Omeprazole . Generalize d anxiety disorder 09988539 F41.1 improved, continue sertraline Rupture of tendon of biceps 154190089 M66.829 RUE, counseled. Obesity 323956708 E66.9 I counseled pt on obesity. We discussed risks and ways to loose weight. Pt will work on diet, exercise.p t will start daily AM schedule and start daily AM b complex. [id number] Anna Sewell DO [facility] ([facility]) [address] [place] [id number] 09/13/2023 10:27:14 09/13/2023 13:10:16 Rupture of tendon of biceps 075492101 M66.829 RUE, continue conservati ve management . Will start physical therapy. Right rota tor cuff syndrome 4119290924 02947 M75.101 Patient has failed conservati ve therapy with cortisone injection, rest, NSAIDs, pain medicine, home exercises and home therapy in the pool 3 times a week for the last 6 weeks. We will proceed with physical therapy through physical therapy specialist . Consider MRI. [id number] Anna Sewell DO [facility] ([facility]) [address] [place] [id number] 5 09/28/2023 11:20:21 09/28/2023 12:56:42 Obstructive sleep apnea of adult 5807467816 103 G47.33 Pt is compliant with CPAP, wearing more than 6hrs/night and missing less than 1 night/90da ys. I counseled on MARINO, CPAPs, and sleep hygeine.Pt needs a new machine.- Auto titrating CPAP. we have already sent orders for this. continue current settings. [id number] JESSY ELLIS [facility] ([facility]) [address] [place] [id number] 5 11/11/2023 14:09:39 11/11/2023 16:14:36 Acute pansinusitis 6169105 J01.40 Discussed use of antibiotic . Take with food.May use Neto's nasal inserts and also apply on chest. Push oral fluids. Consider nasal saline rinses and otc decongesta nt.Use tylenol/mo josue for ahumada. [id number] Anna Sewell DO [facility] ([facility]) [address] [place] [id number] 5 11/14/2023 11:26:48 11/14/2023 14:16:29 Acute sinusitis 11661219 J01.90 Continue Doxy, steroid IM, Albuterol inhaler today. [id number] Anna Sewell DO [facility] ([facility]) [address] [place] [id number] 5 03/13/2024 10:20:41 03/13/2024 17:40:09 Obstructive sleep apnea of adult 1518486175 103 G47.33 Pt is compliant with CPAP, wearing more than 6hrs/night and missing less than 1 night/90da ys. He reports improved symptoms and much more energy. I counseled on MARINO, CPAPs, and sleep hygeine. Chest pain 85060353 R07. 9 intermitte nt, currently resolved, but concern for cardiac etiology. EKG today with NSR 60, with RBBB.couns eled pt on cardiac concerns. We will send for cardiac stress test. pt to go to ER with any return of Chest pain that does not resolve in less than 1 minute. Fatigue 19914917 R53.83 unclear if related to CAD or other. will get labs as below and continue cardiac workup. Essential hypertension 32744155 I10 BP improved with weight loss, remain off antihypert ensives. monitor daily. [id number] Anna Sewell DO [facility] ([facility]) [address] [place] [id number] 5 04/21/2024 13:08:28 04/22/2024 18:56:22 Neck pain 18458843 M54.2 Chronic with acute significan t worsening. Significan t pain with significan t loss of range of motion. Will start as needed muscle relaxer, mostly at night. Prednisone open morning. Start physical therapy. Counseled on diagnosis, treatment options, medication s. Muscle spa sm of cervical muscle of neck 0547741880 04 M62.838 Chronic with acute significan t worsening. Significan t pain with significan t loss of range of motion. Will start as needed muscle relaxer, mostly at night. Prednisone open morning. Start physical therapy. Counseled on diagnosis, treatment options, medication s. [id number] JESSY ELLIS [facility] ([facility]) [address] [place] [id number] 2024 10:01:51 2024 10:52:48 Acute upper respiratory infection 66112545 J06.9 Discussed use of otc medication s for symptom management .Push oral fluids and rest.If you develop fever, sob, or start feeling worse then return for re-evaluat ion. [id number] JESSY MCCLELLAN [facility] ([facility]) [address] [place] [id number] 5 08/16/2024 18:18:20 08/16/2024 18:53:13 Acute upper respiratory infection 35989259 J06.9 Increase po fluids. RTC if no improvemen t or with any fever, shortness of breath. [id number] Anna Sewell DO [facility] ([facility]) [address] [place] [id number] 08/19/2024 14:53:43 08/22/2024 15:08:17 Acute bronchitis 69135897 J20.9 08/19/24- Counseled abx, will extend Prednisone he was given in [place]. Ok to use the cough syrup he has at home. [id number] Anna Sewell DO [facility] ([facility]) [address] [place] [id number] 5 10/28/2024 15:57:28 10/28/2024 17:10:49 Essential hypertension 09994030 I10 BP improved with weight loss, remain off antihypert ensives. monitor daily. Benign pro static hyperplasia with outflow obstruction 673870547 N40.1 Stable, off Flomax. Gastroesop hageal reflux disease 245758456 K21.9 Continues Omeprazole . Generalize d anxiety disorder 08838992 F41.1 improved, off Sertraline . Obesity 402943744 E66.9 I counseled pt on obesity. We discussed risks and ways to loose weight. Pt will work on diet, exercise as tolerated. Trochanter ic bursitis of left hip 1234853718 32113 M70.62 Counseled on diagnosis, treatment options. Consider injection. Prepatella r bursitis of left knee 6436241547 86823 M70.42 Counseled on diagnosis, treatment options. Discussed Diclofenac , continue this, consider injection, ok to swim, will be good therapy for his knee and hip. [id number] JESSY MCCLELLAN [facility] ([facility]) [address] [place] [id number] 5 12/03/2024 11:45:46 12/03/2024 13:13:38 Dysuria 73663720 R30.0 79612 Acute rete ntion of urine 758223549 R33.8 [id number] Sent to ER for further evaluation and treatment. Patient is with who will be driving. Report called to ER charge nurse per Ellyn GREGORY. [id number] Anna Sewell DO [facility] ([facility]) [address] [place] [id number] 5 12/08/2024 11:48:10 12/08/2024 13:21:33 Urinary outflow obstruction 264351546 N13.9 [id number] with complete obstructio n with ER visit, that required indwelling cath placed in ER on 12/03/24.pt to start back on flomax, will send to urology. likely needs cystoscopy . continue with cath with bag.counse led Benign pro static hyperplasia with outflow obstruction 172547077 N40.1 Pt needs to restart BID tamsulosin today. We will refer to Urology. Obstructiv e sleep apnea of adult 1282873853 103 G47.33 Pt is compliant with CPAP, wearing more than 6hrs/night and missing less than 1 night/90da ys. He reports improved symptoms and much more energy. I counseled on MARINO, CPAPs, and sleep hygeine. [id number] Anna Sewell DO [facility] ([facility]) [address] [place] [id number] 5 12/23/2024 16:31:05 12/25/2024 13:57:55 Pain of hip region 87179593 M25.552 [id number] 12/23/24: XR L hip/pelvis today. Pain of knee region 1003 979354 M25.561 47275746 XR right knee today. [id number] Anna Sewell DO [facility] ([facility]) [address] [place] [address] [id number] 5 01/01/2025 12:16:23 01/05/2025 08:39:50 Arthritis of right knee joint 0933848891 348031 M17.11 [id number] I counseled pt on DX and treatment options. Pt desires to proceed with Joint injection today. Performed as documented . Pt tolerated well. counseled on limiting activity the next 24 hrs. return if problems. Enthesopat hy of left hip 5375906524 1359456 M76.892 [id number] significan t pain and decreased ROM to left hip with normal recent hip xray. will concern for impingemen t or labrum tear will get MRI. consider ortho referral to DR. Rodríguez. Leg length inequality 45 280504 M21.70 47480 left leg approx 1.5cm short on exam. this has been all his adult life. no workup so far. LIkely contributi ng to his right knee and left hip chronic progessive pain. will await workup on hip and likely send to ortho. [id number] JESSY MCCLELLAN [facility] [place]) [address] [place] [phone] 04/09/2025 10:45:55 04/09/2025 11:59:20 Pain of right eye [id number] H57.[id number] Sewell. Will send to [facility] for appt this afternoon for further evaluation and treatment. Appt made for 3 pm today. Health Concerns Section Related Observation LastModified by Organization Detai ls LastModified Time None Recorded Concern Status LastModified by Organization Details LastModified Time None Recorded Advance Directives Directive None Recorded Payers Insurance Date Sequence Insurance Name Policy Number Policy Johnson Covered Member ID Johnson Member ID Guarantor Name 04/09/2025 2 [employer] SU[employer]AL - [employer] (MEDICARE SUPPLEMENT) Max B Costello [id number] Max B Costello 09/30/2024 2 [employer] [place] (MEDICARE SUPPLEMENT) Max B Costello [id number] Max B Costello 04/09/2025 1 [place] Max B Costello [id number] Max B Costello 04/09/2025 [place] A - [facility] (MEDICARE) Max B Costello [id number] Max B Costello Notes Date Note Type Note Provider Name and Address Organization Details Recorded Time 12/03/2024 text/html ROS as noted in the HPI Patient states he woke up this morning and was able to urinate as normal. About two hours ago, he started having difficulty going, pain with urination and is unable to get comfortable standing or sitting. He does have history of kidney stones. Noticeable distress at time of exam. EDEL NOLASCO, PROGRAM MANAGER SLP [address] [place], [phone], [facility], Marisa 12/03/2024 12:18:08 12/08/2024 text/html ROS as noted in the HPI Pt presents for ER f/u kidney stone on 12/03/24 at [facility] He has pain that is worse at the tip of his penis/urethra. He describes the pain as more raw feeling. On Wed am he went to the bathroom and had no difficulty urinating and he started having difficulty urinating when at [facility] when he was shopping and he started dribbling and unable to urinate. [place] and had testing done and dx epididymitis He is unsure if he can get the lopez catheter removed today in clinic or if he needs to see urologist in [facility] [place] admits that he was taking tamsulosin in the past and stopped med d/t he did not think that he needed itHas 4 tablets left of the abt left that he was prescribed He has kept track of his urinary output and his readings areWed 5-9pm 3600, Yang 4200 Sat 5700, Sun 2900, and this am 1400 he is drinking 64 ounces of water daily and 3 (12-16 oz ) cups of coffee daily Pt is also here today for a FACE-2-FACE evaluation for MARINO with CPAP.The patient brings in a 30 day CPAP compliance report.Pt reports getting more used to the machine, and has been trained on how to use and clean it.the report reveals:USAGE:30-/30 days>4hrs/night 30days (100%)The patient endorses feeling more rested and with better sleep and more energy during the day. Anna Sewell DO [address] [place] [address], [phone], [facility], [facility] 12/09/2024 07:17:06 12/23/2024 text/html ROS as noted in the HPI Pt presents for left hip and right knee pain. No fall or injury.Currently 02/12.Pain radiating from left hip to left knee some, however most pain is in the right knee. Today he found he couldn't hardly walk d/t knee pain.Pain worse with movement, walking.He is swimming every day, nice and easy, not helping his pain.Using the Diclofenac gel helps some but does not resolve the pain Anna Sewell DO [address] [place] [address], [phone], [facility], [facility] 02/02/2025 22:47:09 01/01/2025 text/html ROS as noted in the HPI Pt presents for right knee pain. f/u from Xray 1-2 wks ago. He wants to discuss both knees and left hip. He also reports that his left leg has always been shorter than the other and wants to know if this is causing the pain He rates pain 8/10 for his hip and 4/10 for the knee. right knee is dull throbb, slowly progressing, worse with stairs. left hip is sharp ache, worse with stairs. getting worse over the last 3 mts. Xray of left hip with no significant bony change. right knee with moderate degen arthritis. He is unable to walk downhill or down stairs with out severe pain Anna Sewell, [address] [place], [phone], [facility], L.LТатьянаC. 01/01/2025 21:35:14 04/09/2025 text/html Red EyeReported by PatientROS as noted in the HPI walk in patientpatient is here today for sinus pressure that started a couple of weeks ago then last night his right eye turned red, hurts and is swollen. JESSY MCCLELLAN [address] [place], [phone], [facility], L.LТатьянаC. 04/09/2025 11:53:48
[2025-06-29 12:12] VITALS: O2SAT 95
--- NOTE | 2025-06-29 12:15 | PC.NURSE ---
PT REFUSED GOWN
--- NOTE | 2025-06-29 12:20 | PC.NURSE ---
PATIENT STATES HE DOES NOT WANT TO BE CHANGED. PATIENT STATES WEARS A MENS PAD AND IT COLLECTED 99% OF IT. PATIENT STATES WHEN HE GETS UPSTAIRS HIS WILL GO GET MORE PADS FROM THE CAR AND HE WILL FIGURE OUT A WAY TO GET CLEANED UP. NURSE ENCOURAGED GETTING PATIENT CHANGED AND STAFF WOULD HELP. PATIENT STILL REFUSED DEPENDS CHANGE.
[2025-06-29 12:53] VITALS: BMI 31.6
--- NOTE | 2025-06-29 13:33 | PM.HP ---
Providers/Chief Complaint Admitting Physician: Sj Kong Primary Care Provider: Abbe Sewell DO Chief Complaint: knee pain History of Present Illness Pedro Costello is a 69 year old male who presented to the ED on 06/29/2025 with a 3 day history of acute right knee pain. In ED XR of right knee revealed no acute findngs. Additional important information Patient reports recent left hip trochanteric bursitis with deep medius repair. He has been instructed not to bear weight on the left lower extremity until seen in follow-up and cleared by ortho. On Sunday, while attempting to sit down after using the bathroom, he felt like he was leaning to the left and at risk of falling on his surgical leg. He twisted quickly to avoid this, however still ended up falling onto the chair. He felt a sharp pain in his right knee. The following day he developed significant swelling and tenderness particularly on the right side of the knee. He reports being unable to touch the knee due to pain and cannot lift the right leg off the bed. Describes pain when the leg is dangling and with bending. Denies back injury and has intact sensation in the extremity. Reports that he has no control over his right lower extremity. Notes to have been using compression and ice around the knee which has provided some relief. Patient currently scheduled to follow-up with orthopedic surgery on 07/07/2025. In ED radiography of right knee was done without acute findings. Patient is being admitted under enervation acute findings. Patient was admitted for pain control and possibly rehabilitation. In lieu of recent surgery to the left lower extremity and acute injury to the right knee patient has become significantly debilitated in his function and ability to ambulate. His family is not able to take care of him. Review of Systems General: Reports: 10 or more systems reviewed and unremarkable except in HPI and below Medications/Allergies Home Medications ?Medication ?Instructions ?Recorded ?Confirmed ?Last Taken ?Type omeprazole 40 mg capsule,delayed 40 mg PO DAILY 12/03/24 06/29/25 06/29/25 History release cholecalciferol (vitamin D3) 10 10 mcg PO DAILY 02/10/25 06/29/25 06/29/25 History mcg (400 unit) capsule multivitamin 1 tab PO DAILY 02/10/25 06/29/25 06/29/25 History saw palmetto 450 mg capsule 450 mg PO BID 02/10/25 06/29/25 06/29/25 History tamsulosin 0.4 mg capsule 0.4 mg PO DAILY 02/10/25 06/29/25 06/29/25 History zinc sulfate 50 mg zinc (220 mg) 50 mg PO BID 02/10/25 06/29/25 06/29/25 History tablet Hospital Bed #1 ea 06/15/25 06/29/25 Unknown Rx aspirin 325 mg tablet 325 mg PO DAILY 30 days #30 tabs 06/18/25 06/29/25 06/29/25 Rx hydrocodone 7.5 mg-acetaminophen 1 tab PO Q6H PRN pain #20 tabs 06/18/25 06/29/25 Unknown Rx 325 mg tablet ondansetron 4 mg disintegrating 4 mg PO Q8H PRN Nausea And Vomiting 06/29/25 06/29/25 Unknown History tablet Allergies Allergy/AdvReac Type Severity Reaction Status Date / Time No Known Allergies Allergy Verified 06/17/25 10:34 PFSH Acute PFSH: Social History Smoking and tobacco/nicotine status: former use of tobacco/nicotine Alcohol intake: never Substance/Drug Use: former Vitals/I&O/Wt Last Vital Signs Temp 98.2 F 06/29/25 10:22 Pulse 84 06/29/25 10:22 Resp 16 06/29/25 10:22 BP 143/81 06/29/25 10:22 Pulse Ox 95 06/29/25 12:12 O2 Del Method Room Air 06/29/25 12:53 Weight last 48 hrs Weight 88.904 kg Weight 86.183 kg Physical Exam Narrative: Constitutional: NAD Head: NC/AT Eyes: PERRLA, EOMI Ears: Normal external ears. Hearing intact to normal voice. Nose: Normal external nose. No epistaxis. Throat: MMM Respiratory: CTAB. No accessory muscle use. On room air. Cardiovascular: Regular. No murmur. Extremities: RLE with edema, starting at the knee and extending distally Gastrointestinal: Soft. NT. ND. +BS Genitourinary: No lopez catheter Musculoskeletal: Sensation intact throughout RLE. Patient is unable to extend or bend at the knee. able move toes. Movement worsens pain. Data Other Labs: No labs collected in ED. Other Xray: Radiologist's impression: XR right knee, 06/29/2025 Mild tricompartment narrowing and spurring. No fractures or dislocation. Soft tissues are normal. No acute findings. A&P Assessment and plan 1. Knee pain, right: Plan: # Acute right knee pain Possibly in the setting of compensatory weight bearing on the right side following left hip surgery - MRI right knee wo contrast to evaluate soft tissue/ligament injury - Consult case management - Consult physical therapy - Pain control [place] 7.5-325 Q6H prn Rest, ice, elevate - Fall precautions # s/p left hip surgery Surgery on 06/18 to repair left hip greater trochanteric bursitis and tear of left gluteus medius tendon - LLE non-weight bearing, until cleared by ortho, pt has f/u appt w/ ortho on 07/07 - Post operative VTE ppx, was placed on ASA 325 daily, continue # GERD - DOPE POURER on protonix 40 mg daily, continue # BPH with LUTS symptoms - DOPE POURER on tamsulosin 0.4 mg daily, continue VTE w/ SCDs and lovenox PDMP PDMP Reviewed: Not Reviewed Attestations Medical Necessity Statement*: Patient admitted under observation status. He will require less than 2 nights for the management and evaluation of right knee pain and addressing his rehabilitation needs. Coding Level of Care Code 19179 Diagnoses Knee pain, right M25.561
[2025-06-29 16:58] VITALS: BP 124/85; PULSE 84; RESP 17; TEMP 36.4; O2SAT 94
[2025-06-29 20:00] VITALS: BP 121/77; PULSE 77; RESP 16; TEMP 36.7; O2SAT 96
[2025-06-29] MEDS: HYDROcodone-acetaminophen 7.5-325 mg Tablet 1 TAB PO (20:15)
[2025-06-29 23:38] VITALS: BP 120/68; PULSE 68; RESP 18; TEMP 36.9; O2SAT 95
[2025-06-30 03:32] VITALS: BP 118/72; PULSE 64; RESP 18; TEMP 36.8; O2SAT 96
[2025-06-30 07:51] VITALS: BP 115/75; PULSE 71; RESP 18; TEMP 36.7; O2SAT 95
--- NOTE | 2025-06-30 08:00 | MRR_ITS ---
PROCEDURE INFORMATION: Exam: MR Right Lower Extremity Joint Without Contrast, Knee Exam date and time: 06/30/2025 10:37 AM Age: 69 years old Clinical indication: Injury or trauma; Other: Twisted knee; Sprain or strain; Patella or knee; Right; Injury details: Recent surgery on hip 1.5 to 2 weeks ago. Getting up from sitting and transferring PT twisted RT knee. Started swelling that evening, unable to bear weight on RT knee; Additional info: Knee injury, evaluate further soft tissue/ligaments. No history of recent trauma or surgery is otherwise provided. TECHNIQUE: Imaging protocol: Magnetic resonance imaging of the right lower extremity joint without contrast. Exam focused on the knee. 164image(s) are provided. COMPARISON: 1. CR XR knee RT 3V* [id number] 06/29/2025 10:38 AM report. 2. CR XR knee RT 3V* [id number] 12/23/2024 4:54 PM report. No previous MRI of the knee is currently available. FINDINGS: Bones/joints: There are some multi compartmental degeneration changes present with spurring and narrowing. There are some subchondral cystic related changes present similar and could also be seen with processes including degeneration with repetitive micro trauma as well as osteochondrosis. For example, appearing most pronounced of the patellofemoral margins along with some subtle marrow edema including of the lateral margins. There is some lateral patellar tilt overall present. The medial retinaculum appears to be grossly intact. There is some fluid signal and subtle irregularity of the lateral retinaculum suggestive of sprain related sequela. There are areas of chondral surface irregularity present correspondingly with the multi compartmental degeneration. There is a large amount of joint fluid present with some debris. There is a small amount of popliteal fossa fluid present of the posterior capsular margin. Fat pads of knee: There is some irregular, increased signal throughout Hoffa's fat pad suggestive of contusion related sequela. Consider also if there is history of patellar tracking related changes. Medial meniscus: The medial meniscus demonstrates some myxoid degeneration. There is some slight increased signal of the medial meniscus posterior horn meniscocapsular attachments suggestive of contusion related sequela along with subtle adjacent cystic related changes. Lateral meniscus: The lateral meniscus demonstrates some myxoid degeneration. There is some oblique fluid signal of the anterior horn with some subtle truncation and therefore could represent some fissuring, subtle tearing along with some marginal adjacent fluid cystic type appearance. Anterior cruciate ligament: The ACL appears grossly intact. Posterior cruciate ligament: The PCL appears grossly intact. Medial capsule and supporting structures: The MCL appears grossly intact. Lateral capsule and supporting structures: The LCL complex appears grossly intact. There is however some thickening of the deep components suggestive of sprain related sequela including some strain type fluid signal of the popliteus and could represent some associated muscular strain type injury. There is some fluid signal stranding of the iliotibial tract and could be seen with some injury, friction related sequela. Extensor mechanism of knee: The patellar and quadriceps tendons appear grossly intact. Soft tissues: No significant diffuse subcutaneous fluid collections are appreciated. There is however some overall subcutaneous edematous fluid type stranding present. There are some areas which appear more pronounced for example including laterally. The included pes anserinus tendons appear grossly intact. There is some thickening of the semimembranosus insertion. There appears to be some muscular strain signal of the posterior compartmental, gastrocnemius margins superiorly. There is some motion artifact present. No other significant interval changes are appreciated. MR/MR knee RT wo con* [id number] IMPRESSION: 1. There is a large amount of joint fluid present. 2. There is multi compartmental degeneration with spurring and narrowing present along with subchondral cystic related changes. These findings appear most pronounced about the lateral compartment as well as patellofemoral. There is some subtle marrow edema and could also represent some associated contusion of the lateral aspect of the patella and femur. Consider if there is history of injury or localized point tenderness. 3. There are some muscular strain type signal related changes including posteriorly about the gastrocnemius and popliteus margins and could represent some associated injury. 4. There is some thickening of the deep components of the LCL suggestive of sprain related sequela as well as of the lateral patellar retinaculum.
--- NOTE | 2025-06-30 10:47 | PC.CHAP ---
Pastoral Care Encounter/Spiritual Assessment Type of Contact [] Declined drapery head former visit [] Patient/Family/Request visit [] Outpatient visit [] Follow-up visit [] Physician referral [] Code/Alert [x] Routine visit [] Staff referral [] Actively dying [] Patient sleeping [x] Family support [] [] Out of room [] Palliative care [] [] Receiving care in room [] Pre-surgical visit [] Trauma [] Long length of stay [] ICU visit [] Other: Relational/Emotional Strength [x] Patient feels connected with others/family/visitors/staff [] Distress [] Loneliness/isolation [] Abandonment Spirituality of Patient [x] Person of Rhianna [] Attends Jewish of their Rhianna [x] Believes in Prayer [] Reads Bible or Denominational materials [] There are Spiritual issues to be addressed Kosher Dietary Service Manager Interventions [x] Prayer [x] Active listening [] Non-anxious presence [x] Spiritual/emotional support [] Crisis/trauma care [] Spiritual counseling [] Bereavement support [] Provided bereavement packet [] Provided Bible/devotional materials [] Provided toy/stuffed animal, coloring book to patient or family member [] Provided Communion [] Anointing/[place] [] Salvation [x] Completed spiritual assessment [] Other: Impact on Illness or Injury [] Angry [] Fearful [] Anxious [] Often cries [] Exhaustion [] Unable to work [] Unable to attend orthodoxy [] Unable to walk/stand [] Unable to read [] Unable to drive [] Unable to eat/drink [] Unable to sleep [] Unable to be with family [] Patient intubated [] Other: Summary Time spent with patient
[2025-06-30 11:24] VITALS: BP 113/75; PULSE 77; RESP 18; TEMP 36.7; O2SAT 93
[2025-06-30 12:03] LABS: Hematocrit 45.1 % (37-53); Hemoglobin 15.20 g/dL (11.27-16.99); Mean Corpuscular HGB Conc 33.7 g/dL (30-55); Mean Corpuscular Hemoglobin 30.4 pg (27-33); Mean Corpuscular Volume 90.2 fl (82-101); Nucleated Red Blood Cells % 0 %; Platelet Count 222 10^3/cmm (157-399); Red Blood Count 5.00 10^6/uL (3.85-5.65); White Blood Count 8.89 10^3/uL (3.29-11.43)
[2025-06-30 12:17] LABS: Anion Gap 13.2 (5-19); Blood Urea Nitrogen 16 mg/dL (8-23); Calcium 9.1 mg/dL (8.5-10.5); Carbon Dioxide 27 mmol/L (22-29); Chloride 103 mmol/L (98-107); Glucose 97 mg/dL (65-115); Osmolality Calculated 289 mOsm/kg (285-295); Potassium 4.2 mmol/L (3.5-5.1); Sodium 139 mmol/L (136-145); Uric Acid 5.9 mg/dL (3.4-7.0)
[2025-06-30] MEDS: HYDROcodone-acetaminophen 7.5-325 mg Tablet 1 TAB PO (13:07)
[2025-06-30 15:54] VITALS: BP 157/71; PULSE 78; RESP 18; TEMP 36.7; O2SAT 95
--- NOTE | 2025-06-30 17:21 | P.PN_ITS ---
Subjective 2 Subjective: Patient was seen this morning, currently alert oriented x 3, following all commands, complaining of severe right knee pain, pain with motion of motion, no clicking, no popping, reports pain with internal rotation, swelling of the right knee joint, no fevers, chills no history of gout, no history of cellulitis, no overlying skin changes, no sinus drainage Vitals/I&O/Wt Last Vital Signs Temp 98.0 F 06/30/25 15:54 Pulse 78 06/30/25 15:54 Resp 18 06/30/25 15:54 BP 157/71 06/30/25 15:54 Pulse Ox 95 06/30/25 15:54 O2 Del Method Room Air 06/30/25 15:54 06/30/25 06/30/25 06/30/25 06:59 14:59 22:59 Intake Total 120 / 600 720 / 720 Output Total 250 / 1750 850 / 850 Balance -130 / -1150 -130 / -130 Weight last 48 hrs Weight 91.314 kg Weight 88.904 kg Weight 86.183 kg Physical Exam 2 Const: COMMON NORMALS: no acute distress and patient oriented x3 Resp: COMMON NORMALS: normal respiratory effort, No retractions, No use of accessory muscles and clear to auscultation bilaterally AUSCULTATION: clear to auscultation bilaterally Cardio: COMMON NORMALS: regular rate, regular rhythm, S1 normal heart sound present and S2 normal heart sound present RATE: regular rate RHYTHM: r egular rhythm HEART SOUNDS: S1 normal heart sound present and S2 normal heart sound present GI: COMMON NORMALS: Normal to inspection, nondistended, normoactive bowel sounds present and non-tender Extremity: COMMON NORMALS: no pedal edema LEFT LOWER EXTREMITY: Yes knee joint Left knee: Yes inspection, Yes ROM and Yes special tests Left knee special tests: Luis F test: Negative OTHER: acl sign negative, pcl sign negative Neuro: COMMON NORMALS: patient oriented x3 Psych: COMMON NORMALS: mental status grossly normal Data 06/30/25 11:44 06/30/25 11:44 A&P Assessment and plan 1. Knee pain, right: Plan: # Acute right knee pain - MRI right knee wo contrast to evaluate soft tissue/ligament injury - Consult case management - Consult physical therapy - Pain control [place] 7.5-325 Q6H prn Rest, ice, elevate # s/p left hip surgery Surgery on 06/18 to repair left hip greater trochanteric bursitis and tear of left gluteus medius tendon - LLE non-weight bearing, until cleared by ortho, pt has f/u appt w/ ortho on 07/07 - Post operative VTE ppx, was placed on ASA 325 daily, continue # GERD - protnoix # BPH with LUTS symptoms - on tamsulosin 0.4 mg daily, VTE w/ SCDs and lovenox PDMP PDMP Reviewed: Not Reviewed Attestations 2 Medical Necessity Statement*: patient requires hospitalization for right knee pain Diagnoses Knee pain, right M25.561
[2025-06-30 20:00] VITALS: BP 143/82; PULSE 77; RESP 18; TEMP 36.7; O2SAT 94
[2025-06-30] MEDS: blistex lip oint 7 gm Tube 1 APPLIC TOPICAL (20:58)
[2025-07-01] VITALS: BP 121/77; PULSE 71; RESP 18; TEMP 36.7; O2SAT 94
[2025-07-01 04:00] VITALS: BP 135/81; PULSE 76; RESP 18; TEMP 36.8; O2SAT 96
[2025-07-01 06:00] VITALS: BMI 32.5
[2025-07-01 07:16] VITALS: BP 130/86; PULSE 82; RESP 18; TEMP 36.7; O2SAT 95
[2025-07-01 11:13] VITALS: BP 127/85; PULSE 81; RESP 18; TEMP 36.7; O2SAT 96
[2025-07-01 12:59] VITALS: BP 127/85; PULSE 81; O2SAT 96
--- NOTE | 2025-07-01 15:17 | P.DS_ITS ---
Discharge Providers Date of Admission: 06/29/25 12:16 Date of Discharge: July 01, 2025 Attending Provider at Admission: Sj Kong Attending Provider at Discharge: Eulalio Connors MD Primary Care Provider: Abbe Sewell DO Diagnoses at Discharge Discharge Diagnosis 1. Knee pain, right: Reason for Visit Reason for Visit: knee pain Hospital Course Hospital Course This is a 69-year-old male who presents to [facility] due to a 3-day history of right knee pain Patient was admitted to [facility] for right knee pain -Received inpatient PT OT -Received MRI left knee MR/MR knee RT wo con* [id number] IMPRESSION: 1. There is a large amount of joint fluid present. 2. There is multi compartmental degeneration with spurring and narrowing present along with subchondral cystic related changes. These findings appear most pronounced about the lateral compartment as well as patellofemoral. There is some subtle marrow edema and could also represent some associated contusion of the lateral aspect of the patella and femur. Consider if there is history of injury or localized point tenderness. 3. There are some muscular strain type signal related changes including posteriorly about the gastrocnemius and popliteus margins and could represent some associated injury. 4. There is some thickening of the deep components of the LCL suggestive of sprain related sequela as well as of the lateral patellar retinaculum. - Overall clinically improved - Will have patient follow-up with Dr. Rodríguez as outpatient -continue rest ice compression elevation - Discharged on hydrocodone to be used sparingly for pain - Do not drive or operate heavy machinery or drink while taking medication - Continue his home aspirin for DVT prophylaxis Physical Exam Const: COMMON NORMALS: no acute distress and patient oriented x3 Eye: COMMON NORMALS: Equal, round and reactive pupils present and EOMs intact bilaterally PUPIL: Yes Equal, round and reactive pupils present Resp: COMMON NORMALS: normal respiratory effort, No retractions, No use of accessory muscles and clear to auscultation bilaterally AUSCULTATION: clear to auscultation bilaterally Cardio: COMMON NORMALS: regular rate, regular rhythm, S1 normal heart sound present and S2 normal heart sound present RATE: regular rate RHYTHM: regular rhythm HEART SOUNDS: S1 normal heart sound present and S2 normal heart sound present GI: COMMON NORMALS: Normal to inspection, nondistended, normoactive bowel sounds present and non-tender Extremity: COMMON NORMALS: no pedal edema Neuro: COMMON NORMALS: patient oriented x3, CN's II-XII intact bilaterally and moves all extremities Psych: COMMON NORMALS: mental status grossly normal Discharge Data Studies Completed and Pending Completed Studies During Hospitalization Category Date Time Status XR knee RT 3V* [id number] Stat Exams 06/29/25 10:33 Completed MR knee RT wo con* [id number] Routine MRI 06/30/25 08:00 Completed Radiology Impressions Knee X-Ray 06/29/25 10:33 IMPRESSION: No acute findings. Knee MRI 06/30/25 08:00 IMPRESSION: 1. There is a large amount of joint fluid present. 2. There is multi compartmental degeneration with spurring and narrowing present along with subchondral cystic related changes. These findings appear most pronounced about the lateral compartment as well as patellofemoral. There is some subtle marrow edema and could also represent some associated contusion of the lateral aspect of the patella and femur. Consider if there is history of injury or localized point tenderness. 3. There are some muscular strain type signal related changes including posteriorly about the gastrocnemius and popliteus margins and could represent some associated injury. 4. There is some thickening of the deep components of the LCL suggestive of sprain related sequela as well as of the lateral patellar retinaculum. Laboratory Results WBC 8.89 10^3/uL (3.29-11.43) 06/30/25 11:44 RBC 5.00 10^6/uL (3.85-5.65) 06/30/25 11:44 Hgb 15.20 g/dL (11.27-16.99) 06/30/25 11:44 Hct 45.1 % (37-53) 06/30/25 11:44 MCV 90.2 fl (82-101) 06/30/25 11:44 MCH 30.4 pg (27-33) 06/30/25 11:44 MCHC 33.7 g/dL (30-55) 06/30/25 11:44 RDW 12.8 % (12.1-15.1) 06/30/25 11:44 Plt Count 222 10^3/cmm (157-399) 06/30/25 11:44 MPV 9.9 fL (7.4-10.4) 06/30/25 11:44 Neut % (Auto) 66.4 % 06/30/25 11:44 Lymph % (Auto) 22.4 % 06/30/25 11:44 [place] % (Auto) 7.1 % 06/30/25 11:44 Eos % (Auto) 3.3 % 06/30/25 11:44 Baso % (Auto) 0.6 % 06/30/25 11:44 Neut # (Auto) 5.91 10^3/uL (1.8-7.7) 06/30/25 11:44 Lymph # (Auto) 2.0 10^3/uL (0.8-4.8) 06/30/25 11:44 [place] # (Auto) 0.6 10^3/uL (0.2-0.9) 06/30/25 11:44 Eos # (Auto) 0.3 10^3/uL (0.0-0.8) 06/30/25 11:44 Baso # (Auto) 0.1 10^3/uL (0.0-0.1) 06/30/25 11:44 Nucleated RBC % (auto) 0 % 06/30/25 11:44 Nucleated RBCs # 0.0 /100WBC 06/30/25 11:44 Sodium 139 mmol/L (136-145) 06/30/25 11:44 Potassium 4.2 mmol/L (3.5-5.1) 06/30/25 11:44 Chloride 103 mmol/L (98-107) 06/30/25 11:44 Carbon Dioxide 27 mmol/L (22-29) 06/30/25 11:44 Anion Gap 13.2 (5-19) 06/30/25 11:44 BUN 16 mg/dL (8-23) 06/30/25 11:44 Creatinine 0.8 mg/dL (0.7-1.2) 06/30/25 11:44 GFR Calculation 95.6 mL/min (90-130) 06/30/25 11:44 Glucose 97 mg/dL (65-115) 06/30/25 11:44 Calculated Osmolality 289 mOsm/kg (285-295) 06/30/25 11:44 Uric Acid 5.9 mg/dL (3.4-7.0) 06/30/25 11:44 Calcium 9.1 mg/dL (8.5-10.5) 06/30/25 11:44 C-Reactive Protein 15.4 mg/L (0.0-4.9) H 06/30/25 11:44 Vitals Last Vital Signs Temp 98.0 F 07/01/25 11:13 Pulse 81 07/01/25 12:59 Resp 18 07/01/25 11:13 BP 127/85 07/01/25 12:59 Pulse Ox 96 07/01/25 12:59 O2 Del Method Room Air 07/01/25 11:13 Discharge Plan Discharge Patient Disposition: Home Condition: Stable Prescriptions: New prednisone 20 mg tablet 20 mg PO BID 3 Days Qty: 6 0RF Continued multivitamin Tablet 1 tab PO DAILY zinc sulfate 50 mg zinc (220 mg) tablet 50 mg PO BID tamsulosin 0.4 mg capsule 0.4 mg PO DAILY cholecalciferol (vitamin D3) 10 mcg (400 unit) capsule 10 mcg PO DAILY saw palmetto 450 mg capsule 450 mg PO BID omeprazole 40 mg capsule,delayed release(DR/EC) 40 mg PO DAILY aspirin 325 mg tablet 325 mg PO DAILY 30 Days Qty: 30 0RF ondansetron 4 mg tablet,disintegrating 4 mg PO Q8H PRN (Reason: Nausea And Vomiting) hydrocodone-acetaminophen 7.5-325 mg tablet 1 tab PO Q6H PRN (Reason: pain) 5 Days Qty: 20 0RF No Action (DME) Hospital Bed See Rx Instructions .Route .MEDSUPPLY Qty: 1 0RF Rx Instructions: As directed: Beneficiary requires positioning of the body in ways not feasible with an ordinary bed in order to alleviate pain. Beneficiary requires a bed height different than a fixed height hospital bed to permit transfers to chair, wheelchair or standing position. Beneficiary required frequent changes in body position and or has an immediate need for a change in position. Beneficiary meets criteria for a fixed height hospital bed. Discharge Order = DC NOW: Discharge Order (Routine); Ordered 07/01/25 Ordered By: Eulalio Connors Referrals: Abbe Sewell DO [Primary Care Provider, Family Practice] - 07/06/25 1:00 pm Patrick Rodríguez PA [Physician Manager Intern, Orthopedics] - 07/07/25 2:30 pm Discharge Diet: Cardiac Discharge Activity: Resume usual activity Patient Instructions: Prednisone (By mouth), Knee Pain (GEN), Opioid Safety, Patient Portal & [place] Instructions Activity Restrictions/Additional Instructions: - Please use hydrocodone sparingly for pain - Do not drive or operate heavy machinery or drink while taking medication Discharge Attestations Time Spent in Discharge Care*: greater than 30 min Quality Metrics Clinical Quality Measures [ No reported AMI, CVA or VTE this stay] Coding Level of Care Code 78406 Total time (in minutes) for Discharge: 45 Diagnoses Knee pain, right M25.561 Chronicity: acute
== END 2025-07-01 13:00 | disposition home or self-care (01) ==
LOC: ER 11:30 → MEDSURG 12:16
PROVIDERS: Admitting Provider Internal Medicine; Emergency Provider Physician Assistant; PCP Electrodiagnostic Medicine; Visit Provider Family Medicine
DX: M25.561 Pain in right knee (principal); K21.9 Gastro-esophageal reflux disease without esophagitis; Z79.82 Long term (current) use of aspirin; Z79.891 Long term (current) use of opiate analgesic; Z87.891 Personal history of nicotine dependence
CPT/HCPCS: 36415; 73562; 73721; 80048; 84550; 85025; 86140; 96372; 97116; 97161; 97165; 97530; 99285; G0378; J1650; J7512; J9999

== ENCOUNTER → 2025-07-07 14:35 | Outpatient (BNVA) | payer MEDICARE, OTHER, SELFPAY | PROVIDERS: PCP Electrodiagnostic Medicine; Visit Provider Physician Assistant | DX: Z98.890 Other specified postprocedural states (principal) | CPT/HCPCS: 99024 ==

== ENCOUNTER → 2025-08-04 13:55 | Outpatient (BNVA) | payer MEDICARE, OTHER, SELFPAY | PROVIDERS: PCP Electrodiagnostic Medicine; Visit Provider Physician Assistant | DX: Z98.890 Other specified postprocedural states (principal) | CPT/HCPCS: 99024 ==